=== PATIENT | female | born 1955 | race Caucasian/White ===

== ENCOUNTER 2019-10-31 11:32 | Outpatient (CLI) | payer BC, SELFPAY ==
[2019-10-31 11:53] LABS: Hematocrit 40.9 % (35.0-49.0)
[2019-10-31 12:21] LABS: Alanine Aminotransferase 26 U/L (14-59); Albumin Level 3.9 g/dL (3.4-5.0); Alkaline Phosphatase 85 U/L (46-116); Aspartate Amino Transferase 23 U/L (15-37); Bilirubin Direct 0.1 mg/dL (0-0.2); Bilirubin,Total 0.4 mg/dL (0.00-1.00); Estimated Glomerular Filt Rate > 60; Total Protein 7.2 g/dL (6.4-8.2)
== END 2019-10-31 11:33 | disposition home or self-care (01) ==
LOC: CHSLAB 11:36
PROVIDERS: PCP Family Medicine; Visit Provider Internal Medicine Rheumatology
DX: M15.9 Polyosteoarthritis, unspecified (principal); M79.7 Fibromyalgia
CPT/HCPCS: 36415; 80076; 82565; 85014; 85018

== ENCOUNTER 2019-11-09 14:14 | Outpatient (CLI) | payer BC, SELFPAY ==
--- NOTE | ~2019-11-09 | MM_ITS ---
EXAMINATION: MM screening connor BI w vineet HISTORY: Screening mammogram TECHNIQUE: Craniocaudal and mediolateral oblique 3-D tomosynthesis images were obtained and synthetic 2-D images were generated. CAD analysis was submitted and interpreted. COMPARISON: 09/07/2018, 03/09/2012 bilateral digital screening mammogram examinations BREAST PARENCHYMAL COMPOSITION: There are scattered areas of fibroglandular density. FINDINGS: Minimal benign calcification. Scattered small circumscribed benign-appearing densities are again noted. There is no evidence of suspicious mass, calcification, or architectural distortion to s uggest malignancy in either breast. There has been no suspicious interval change. IMPRESSION: 1. No mammographic evidence of malignancy. 2. Recommend routine screening mammography in one year. BI-RADS Category 2: Benign finding(s). Reviewed, dictated and finalized at location A.
== END 2019-11-09 14:15 | disposition home or self-care (01) ==
LOC: CHSIMG 14:16
PROVIDERS: PCP Family Medicine; Visit Provider Family Medicine
DX: Z12.31 Encounter for screening mammogram for malignant neoplasm of breast (principal)
CPT/HCPCS: 77063; 77067

== ENCOUNTER 2020-03-01 14:13 | Outpatient (CLI) | payer BC, SELFPAY | END 2020-03-01 14:14 | disposition home or self-care (01) | LOC: CHSLAB 14:17 | PROVIDERS: PCP Family Medicine | DX: E11.9 Type 2 diabetes mellitus without complications (principal) | CPT/HCPCS: 36415; 83036 ==

== ENCOUNTER 2020-05-30 16:59 | Outpatient (RCR) | payer BC, SELFPAY ==
--- NOTE | 2020-06-02 07:15 | PTOPEVAL ---
Thank you for referring Jaycee Espinosa to [facility].? The patient is scheduled to be seen for therapy? __3__x/week for 12 visits. Please review, sign, date and return this plan of care MARGE. I agree with and certify that the following plan of care is medically necessary. Referring Physician Date Admitting Provider: Attending Provider: Jeane Archuleta, INSOLE DOUBLER Referring Provider: *PT Outpatient Evaluation Start: 05/30/20 13:58 Freq: Status: Active Protocol: Document 05/30/20 17:03 ACR (Rec: 05/30/20 18:08 ACR [id number]) Therapy Assessment Status Assessment Status Assessment Status Evaluation Evaluation Information Problem Diagnosis Low back pain Onset 05/27/19 Subjective Information Patient states her low back Query Text:As Reported By Patient/ pain is a constant thing due Family to arthritis. She went to her rheumtoligist because her sciatic pain was increasing and got X-rays in february and he recommended surgery. She then went to her PCP and received an MRI and they referred her to PT. Patient states she received PT a couple years ago then received injections which helped the pain. Patient states she still does her exercises that she learned last time almost daily . The exercises are heel raises, hip abduction, hip extension, back extension, piriformis stretch. Patient states that she has difficulty with prolonged standing, difficulty getting up out of a chair, sleeping on her back. Patient states that the pain will wake her up at night. 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
== END 2020-06-27 14:13 | disposition home or self-care (01) ==
LOC: CHSPT 16:59
PROVIDERS: Visit Provider Nurse Practitioner Family
DX: M54.5 Low back pain (principal)
CPT/HCPCS: 97014; 97110; 97161; G0283

== ENCOUNTER 2021-03-02 12:30 | Outpatient (CLI) | payer BC, SELFPAY ==
[2021-03-02 12:42] LABS: Hematocrit 40.6 % (35.0-49.0); Hemoglobin 13.7 g/dL (12.0-15.0)
[2021-03-02 13:24] LABS: Alanine Aminotransferase 28 U/L (14-59); Albumin Level 3.8 g/dL (3.4-5.0); Alkaline Phosphatase 73 U/L (46-116); Aspartate Amino Transferase 20 U/L (15-37); Bilirubin Direct 0.1 mg/dL (0-0.2); Bilirubin,Total 0.4 mg/dL (0.00-1.00); Estimated Glomerular Filt Rate > 60; Total Protein 6.8 g/dL (6.4-8.2)
== END 2021-03-02 12:31 | disposition home or self-care (01) ==
LOC: CHSLAB 12:33
PROVIDERS: PCP Family Medicine; Visit Provider Internal Medicine Rheumatology
DX: M15.9 Polyosteoarthritis, unspecified (principal)
CPT/HCPCS: 36415; 80076; 82565; 85014; 85018

== ENCOUNTER 2021-03-13 13:16 | Outpatient (CLI) | payer BC, SELFPAY ==
--- NOTE | ~2021-03-13 | XR_ITS ---
EXAMINATION: XR knee RT min 4V DATE: 03/13/2021 13:52 INDICATION: Right knee osteoarthritis and pain. TECHNIQUE: 4 views of right knee were obtained. COMPARISON: None. FINDINGS: Bone alignment is normal. No fracture. There is moderate osteoarthritis of patellofemoral c ompartment and mild osteoarthritis of medial and lateral compartments. No knee joint effusion. IMPRESSION: 1. Moderate right knee osteoarthritis. Reviewed, dictated and finalized at location A.
--- NOTE | ~2021-03-13 | XR_ITS ---
EXAMINATION: XR knee LT min 4V DATE: 03/13/2021 13:52 INDICATION: Left knee osteoarthritis and pain. TECHNIQUE: 4 views of left knee were obtained. COMPARISON: None. FINDINGS: Bone alignment is normal. No fracture. There is mild tricompartmental osteoarthritis charac terized by marginal osteophytes. No joint space narrowing. No knee joint effusion. IMPRESSION: 1. Mild left knee osteoarthritis. Reviewed, dictated and finalized at location A.
== END 2021-03-13 13:17 | disposition home or self-care (01) ==
LOC: CHSIMG 13:18
PROVIDERS: PCP Family Medicine; Visit Provider Internal Medicine Rheumatology
DX: M17.11 Unilateral primary osteoarthritis, right knee (principal)
CPT/HCPCS: 73564

== ENCOUNTER 2021-05-11 12:18 | Emergency (ER) | payer MEDICARE, SELFPAY ==
--- NOTE | 2021-05-11 12:38 | ECG_ITS ---
Measurements Intervals Fox Rate: 45 P: 57 IN: 155 QRS: 40 QRSD: 100 T: 60 QT: 469 QTc: 407 Interpretive Statements SINUS BRADYCARDIA DELAYED PRECORDIAL R/S TRANSITION BASELINE ARTIFACT- I, II, III, AVR, AVL, AVF, V1 ABNORMAL ECG Electronically Signed On 05-11-2021 17:04:45 CONCAVER by Jacob Hutchison D.O.
[2021-05-11 12:41] VITALS: BP 141/51; PULSE 50; RESP 18; TEMP 36.9; O2SAT 98
--- NOTE | 2021-05-11 13:00 | ED.GENADULT ---
HPI - General Adult General Chief complaint: Dizziness Stated complaint: dizzy off/on since 7:30am Source: patient and family Mode of arrival: ambulatory History of Present Illness HPI narrative: Jaycee is a 66F with a PMH of -- that presented to the ED with dizziness. She woke up with it. It originally got better but then cam back when she turned her head. it is worse with rapidly turning her head and looking to the side. No CP, SOB, or lightheadedness. Her HR is low but she says her HR is always 50 and that is nothing new for her. Related Data Allergies Allergy/AdvReac Type Severity Reaction Status Date / Time No Known Allergies Allergy Verified 05/11/21 13:12 Review of Systems Constitutional: Constitutional: Reports no additional constitutional complaints Eyes: Eyes: Reports no additional eye complaints ENT: Reports system reviewed and no additional complaints, except as documented Cardiovascular: Cardiovascular: Reports no additional cardiovascular complaints Respiratory: Respiratory: Reports no additional respiratory complaints Gastrointestinal: Gastrointestinal: Reports nausea Genitourinary: Genitourinary: Reports no additional female genitourinary complaints Musculoskeletal: Musculoskeletal: Reports no additional musculoskeletal complaints Integumentary/Breasts: Skin/Breast: Reports system reviewed and no additional complaints, except as docu Neurologic: Reports as per HPI Psychiatric: Psychiatric: Reports no additional psychiatric complaints Endocrine: Endocrine: Reports no additional endocrine complaints Hematologic/Lymphatic: Hematologic/Lymphatic: Reports no additional hematologic/lymphatic complaints Allergic/Immunologic: Allergic/Immunologic: Reports no additional allergic/immunologic complaints [facility] Family History Family History Mother Family history of malignant neoplasm of skin Other Family history of type 2 diabetes mellitus Social History Social History Smoking status: Current every day smoker Exam Const: General: no acute distress and alert Orientation/consciousness: patient oriented x3 Limitations: No altered mental status HENMT: Head: normal to inspection Other: atraumatic Eyes: Conjunctivae: conjunctivae normal Pupils: Equal, round and reactive pupils present Neck: Neck: normal visual inspection Chest: Chest palpation & inspection: normal inspection of the chest Resp: Effort & Inspection: normal respiratory effort Auscultation: clear to auscultation bilaterally Cardio: Rate: regular rate Rhythm: regular rhythm Skin: General skin exam: normal color Neuro: General: patient oriented x3, moves all extremities, no meningeal signs, no focal motor deficits and CN's II-XI intact bilaterally Other: 3 beats of nystagmus to the left. Normal head impulse test. No skew deviation. Extrem: General: normal to inspection Psych: Mental Status: mental status grossly normal Course Course Emergency Course: Discussed diagnosis and sent script for meclizine. Gave instructions for the Chaya maneuver. Vital Signs Vital signs: Vital Signs Temperature 98.4 F 05/11/21 12:41 Pulse Rate 50 L 05/11/21 12:41 Respiratory Rate 18 05/11/21 12:41 Blood Pressure 141/51 H 05/11/21 12:41 Pulse Oximetry 98 05/11/21 12:41 Temperature 98.4 F 05/11/21 12:41 Pulse Rate 50 L 05/11/21 12:41 Respiratory Rate 18 05/11/21 12:41 Blood Pressure 141/51 H 05/11/21 12:41 Pulse Oximetry 98 05/11/21 12:41 Medical Decision Making Vital Signs Vital Signs: Vital Signs Temperature 98.4 F 05/11/21 12:41 Pulse Rate 50 L 05/11/21 12:41 Respiratory Rate 18 05/11/21 12:41 Blood Pressure 141/51 H 05/11/21 12:41 Pulse Oximetry 98 05/11/21 12:41 Temperature 98.4 F 05/11/21 12:41 Pulse Rate 50 L 05/11/21 12:41 Respiratory Rate 18 04/16
== END 2021-05-11 13:09 | disposition home or self-care (01) ==
PROVIDERS: Emergency Provider Family Medicine; PCP Family Medicine
DX: H81.10 Benign paroxysmal vertigo, unspecified ear (principal)
CPT/HCPCS: 93005; 99283

== ENCOUNTER 2021-10-29 14:40 | Outpatient (CLI) | payer MEDICARE, SELFPAY ==
[2021-10-29 14:55] LABS: Basophils Absolute Auto 0.05 K/mm3 (0.00-0.10); Basophils Percent Auto 0.6 % (0.0-1.0); Eosinophils Absolute Auto 0.05 K/mm3 (0.02-0.50); Eosinophils Percent Auto 0.6 % (1.0-6.0); Hematocrit 40.3 % (35.0-42.0); Hemoglobin 13.5 g/dL (11.7-13.8); Immature Granulocyte Absolute 0.02 K/mm3 (0.00-0.00); Immature Granulocyte Percent A 0.3 % (0.0-0.0); Lymphocytes Absolute Auto 2.85 K/mm3 (1.10-4.50); Lymphocytes Percent Auto 36.2 % (18.0-42.0); Mean Corpuscular HGB Conc 33.5 g/dL (32.0-36.0); Mean Corpuscular Hemoglobin 30.9 pg (27.0-31.0); Mean Corpuscular Volume 92.2 fL (78.0-102.0); Mean Platelet Volume 10.6 fl (9.2-11.8); Monocytes Absolute Auto 0.44 K/mm3 (0.10-0.90); Monocytes Percent Auto 5.6 % (2.0-11.0); Neutrophils Absolute Auto 4.5 K/mm3 (1.7-7.2); Neutrophils Percent Auto 56.7 % (50.0-70.0); Platelet Count Result 205 K/mm3 (150-420); Red Blood Count 4.37 M/mm3 (4.20-5.40); Red Cell Distribution Width 12.8 % (11.6-14.4); White Blood Count 7.9 K/mm3 (4.8-10.8)
[2021-10-29 14:59] LABS: Add Urine Microscopic? YES; Appearance Urine Clear (Clear); Bilirubin Urine Negative (Negative); Blood Urine Negative (Negative); Color Urine Yellow (Yellow); Glucose Urine UA Negative (Negative); Ketones Urine Trace (Negative); Leukocyte Esterase Ur Negative (Negative); Nitrate Urine Negative (Negative); Protein Urine Negative (Negative); Urobilinogen Urine 0.2 mg/dL (0.2-1.0); pH Urine 5.5 (5.0-8.0)
[2021-10-29 15:11] LABS: Alanine Aminotransferase 9 U/L (14-59); Albumin Level 3.6 g/dL (3.4-5.0); Alkaline Phosphatase 69 U/L (46-116); Anion Gap 6 mmol/L (8-16); Aspartate Amino Transferase 18 U/L (15-37); Bilirubin,Total 0.3 mg/dL (0.00-1.00); Blood Urea Nitrogen 25 mg/dL (7-18); Calcium 8.9 mg/dL (8.5-10.1); Carbon Dioxide 29 mmol/L (21-32); Chloride 105 mmol/L (98-108); Estimated Glomerular Filt Rate > 60; Glucose 105 mg/dL (70-99); Osmolality Calculated 294 mOsm/kg (285-295); Sodium 140 mmol/L (136-145); Total Protein 6.8 g/dL (6.4-8.2)
[2021-10-29 15:16] LABS: Bacteria Urine 1+ /hpf; RBC Urine None seen /hpf (0-2); Squamous Epithelial Cell Urine Few /hpf (Few); WBC Urine None seen /hpf (0-3)
== END 2021-10-29 14:41 | disposition home or self-care (01) ==
LOC: CHSLAB 14:43
PROVIDERS: PCP Family Medicine; Visit Provider Internal Medicine Rheumatology
DX: M15.9 Polyosteoarthritis, unspecified (principal); M79.7 Fibromyalgia
CPT/HCPCS: 36415; 80053; 81001; 85025

== ENCOUNTER 2022-01-25 12:54 | Outpatient (CLI) | payer MEDICARE, SELFPAY ==
--- NOTE | ~2022-01-25 | MM_ITS ---
EXAMINATION: MM screening connor BI w vineet HISTORY: Screening mammogram TECHNIQUE: Craniocaudal and mediolateral oblique 3-D tomosynthesis images were obtained and synthetic 2-D images were generated. CAD analysis was submitted and interpreted. COMPARISON: 11/09/2019, 09/07/2018 bilateral screening mammogram examinations BREAST PARENCHYMAL COMPOSITION: There are scattered areas of fibroglandular density. FINDINGS: Occasional benign calcifications. Again noted are scattered low-density small circumscribed opacities. There is no evidence of suspicious mass, calcification, or architectural distortion to ramos ggest malignancy in either breast. There has been no suspicious interval change. IMPRESSION: 1. No mammographic evidence of malignancy. 2. Recommend routine screening mammography in one year. BI-RADS Category 2: Benign finding(s). Reviewed, dictated and finalized at location A.
== END 2022-01-25 12:55 | disposition home or self-care (01) ==
LOC: CHSIMG 12:56
PROVIDERS: PCP Family Medicine; Visit Provider Family Medicine
DX: Z12.31 Encounter for screening mammogram for malignant neoplasm of breast (principal)
CPT/HCPCS: 77063; 77067

== ENCOUNTER 2023-07-26 10:08 | Outpatient (CLI) | payer MEDICARE, SELFPAY ==
[2023-07-26 10:48] LABS: Basophils Absolute Auto 0.07 K/mm3 (0.00-0.10); Basophils Percent Auto 0.8 % (0.0-1.0); Eosinophils Percent Auto 1.1 % (1.0-6.0); Hematocrit 44.3 % (35.0-42.0); Hemoglobin 14.7 g/dL (11.7-13.8); Immature Granulocyte Absolute 0.03 K/mm3 (0.00-0.00); Immature Granulocyte Percent A 0.3 % (0.0-0.0); Lymphocytes Absolute Auto 3.02 K/mm3 (1.10-4.50); Lymphocytes Percent Auto 33.4 % (18.0-42.0); Mean Corpuscular HGB Conc 33.2 g/dL (32-36); Mean Corpuscular Hemoglobin 30.3 pg (27.0-31.0); Mean Corpuscular Volume 91.3 fL (78.0-102.0); Monocytes Absolute Auto 0.54 K/mm3 (0.10-0.90); Neutrophils Absolute Auto 5.27 K/mm3 (1.70-7.20); Neutrophils Percent Auto 58.4 % (50.0-70.0); Platelet Count Result 209 K/mm3 (150-420); Red Blood Count 4.85 M/mm3 (4.20-5.40); Red Cell Distribution Width 12.4 % (11.6-14.4)
[2023-07-26 12:01] LABS: Anion Gap 10 mmol/L (8-16); Carbon Dioxide 31 mmol/L (21-32); Chloride 105 mmol/L (98-108); Potassium 4.1 mmol/L (3.5-5.1); Sodium 146 mmol/L (136-145)
[2023-07-26 12:02] LABS: Alanine Aminotransferase 23 U/L (14-59); Albumin Level 3.9 g/dL (3.4-5.0); Blood Urea Nitrogen 17 mg/dL (7-18); Calcium 8.9 mg/dL (8.5-10.1); Estimated Glomerular Filt Rate > 60; Glucose 128 mg/dL (70-99); Osmolality Calculated 305 mOsm/kg (285-295)
[2023-07-26 12:14] LABS: Alkaline Phosphatase 79 U/L (46-116); Aspartate Amino Transferase 23 U/L (15-37); Bilirubin,Total 0.3 mg/dL (0.00-1.00); Total Protein 6.9 g/dL (6.4-8.2)
== END 2023-07-26 10:09 | disposition home or self-care (01) ==
PROVIDERS: PCP Family Medicine; Visit Provider Internal Medicine Rheumatology
DX: Z79.899 Other long term (current) drug therapy (principal)
CPT/HCPCS: 36415; 80053; 85025

== ENCOUNTER 2024-06-27 13:48 | Outpatient (CLI) | payer MEDICARE, SELFPAY ==
--- NOTE | ~2024-06-27 | MM_ITS ---
EXAMINATION: MM screening [facility] BI w [facility] HISTORY: Screening TECHNIQUE: Craniocaudal and mediolateral oblique 3-D tomosynthesis images were obtained and synthetic 2-D images were generated. CAD analysis was submitted and interpreted. COMPARISON: Comparison to multiple prior studies sequentially, with oldest reviewed study dated 01/25. BREAST PARENCHYMAL COMPOSITION: Not dense: There are scattered areas of fibroglandular density. FINDINGS: There are stable benign-appearing bilateral breast masses. There is no evidence of suspicio us mass, calcification, or architectural distortion to suggest malignancy in either breast. There has been no suspicious interval change. IMPRESSION: 1. No mammographic evidence of malignancy. 2. Recommend routine screening mammography in one year. BI-RADS Category 2: Benign finding(s). Reviewed, dictated and finalized at location B. RAFT REFUELER
--- OUTSIDE RECORDS SUMMARY | 2024-06-27 13:55 | XMS_ITS | Clinical Summary ---
Author Organization [facility] [employer] Address [address] [place] [address] Care Team Providers Care Electrical Drafter Name Role Phone Bart Fortune MD Primary Care Provider [phone] Source Comments [employer],non-owned Affiliates and Associated Physician Practices is amultiple site organization consisting of ambulatory clinics and hospital sitesin [place], [place], [place] and [place]. This disclosure is being madepursuant to the Care Everywhere program and may not contain all information available regarding this patient. Last updated 18.[employer] Allergies No known active allergies Medications * Be aware that medications may not be up to date on this document. Alwaysverify current medications with the patient. Medication Sig Dispensed Refills Start Date End Date Status METOPROLOL SUCCINATE ER PO Active FENOFIBRATE MICRONIZED PO Active LOSARTAN POTASSIUM PO Act cesar Furosemide (LASIX PO) Act cesar Social History Tobacco Use Types Packs/Day Years Used Date Smoking Tobacco: Every Day Sex and Gender Information Value Date Recorded Sex Assigned at Not on file Gender Identity Not on file Sexual Orientation Not on file Last Filed Vital Signs Vital Sign Reading Time Taken Comments Blood Pressure 120/56 08/18/2016 2:45 PM CDT Pulse 66 08/18/2016 2:45 PM CDT Temperature 36.5 C (97.7 F) 08/18/2016 2:45 PM CDT Respiratory Rate 16 08/18/2016 2:45 PM CDT Oxygen Saturation 97% 08/18/2016 2:45 PM CDT Inhaled Oxygen Concentration - - Weight 117.9 kg (260 lb) 08/18/2016 2:45 PM CDT Height 160 cm (5' 3 ) 08/18/2016 2:45 PM CDT Body Mass Index 46.06 08/18/2016 2:45 PM CDT Plan of Treatment Health Maintenance Due Date Last Done Comments BONE DENSITY TESTING 1956 COLOGUARD (AGES 45-75) - COL ON CA SCREENING 1956 COLON MONITORING 1956 COLONOSCOPY - COLON CA SCREENING 1956 CT COLONOGRAPHY - COLON CA SCREENING 1956 Colorectal Cancer Screening 1956 FIT - COLON CA SCREENING 1956 FLEX SIG - COLON CA SCREENING 1956 LIPID TESTING 1956 MAMMOGRAM 1956 HEPATITIS C SCREENING 04/04/1974 DTAP/TDAP/TD VACCINES (1 - Tdap) 1975 PNEUMOCOCCAL VACCINE 50+ (1 of 2 - PCV) 1975 ZOSTER VACCINE (1 of 2) 2006 Respiratory Syncytial Virus (RSV) Vaccine Pt: or over 60 yrs (1 - Risk 60-74 years 1-dose series) 2016 COVID-19 VACCINE (1 - 2023-2 5 season) 2024 INFLUENZA VACCINE (#1) 2024 DEPRESSION SCREENING 05/16/2024 HEPATITIS B VACCINE Aged Out No longe r eligible based on patient's age to complete this topic HIB VACCINE Aged Out No longer eligi ble based on patient's age to complete this topic HPV VACCINE Aged Out No longer eligi ble based on patient's age to complete this topic MENINGOCOCCAL (Group B) VACCINE Aged Out No longer eligible based on patient's age to complete this topic MENINGOCOCCAL VACCINE Aged Out No ricardo henny eligible based on patient's age to complete this topic Care Teams Electrical Drafter Relationship Specialty Start Date End Date Bart Fortune MD [address] [place] [address] PCP - General Surgery 08/18/16
--- OUTSIDE RECORDS SUMMARY | 2024-06-27 13:55 | XMS_ITS | Referral Summary ---
Author Organization [facility] [employer] Address [address] [place] [address] Care Team Providers Care Slitting Machine Operator Helper Name Role Phone Bart Fortune MD Primary Care Provider [phone] Source Comments [facility],non-owned Affiliates and Associated Physician Practices is amultiple site organization consisting of ambulatory clinics and hospital sitesin [place], [place], [place] and [place]. This disclosure is being madepursuant to the Care Everywhere program and may not contain all information available regarding this patient. Last updated 18.[employer] [facility] Allergies No known active allergies Medications * [...] 08/18/2016 2:45 PM CDT Plan of Treatment Not on file Care Teams Slitting Machine Operator Helper Relationship Specialty Start Date End Date Bart Fortune MD [address] [place] [address] PCP - General Surgery 08/18/16
--- OUTSIDE RECORDS SUMMARY | 2024-06-27 13:55 | XMS_ITS | Data Portability ---
Author Organization [facility], [address] [place] [address] ([place]) Address [address] [place] [id number] Care Team Providers Care Operations Research Scientist Name Role Phone JOSEFINA GUTIERREZ Primary Care Provider CLINT MELLO Primary Care Provider [phone] HECTOR CARDOZA Referring Provider Assessment Encounter Date Assessment Date Assessment LastModified by Organization Details LastModified Time 10/26/2023 10/26/2023 IMPRESSION: 1. Bilateral elbow lateral epicondylitis. 2. Right thumb osteoarthritis of the carpometacarpal joint. 3. Right ring finger trigger finger. 4. Fibromyalgia syndrome. 5. 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 nv PLAN: 1. Meloxicam 7.5 mg orally daily with food. 2. Bilateral elbow lateral epicondyle cortisone injections today. The indications, risks, benefits and potential side effects of the procedure are discussed with the patient today in detail and informed consent obtained to proceed. With the patient in the seated position, both elbows are propped on a stand and properly draped. The landmarks are identified and the lateral epicondylar injection sites are identified and marked. Subsequently, the sites are cleaned with Betadine and while maintaining sterile technique, ethyl chloride spray is used to anesthetize the skin over each elbow while in each instance, a 25 gauge needle attached to a syringe containing 40 mg of Depo Medrol and 0.5 cc of 1% lidocaine is introduced into the lateral epicondyle site and the contents are injected. Subsequently, the needle is withdrawn and the areas cleaned and covered with a sterile bandage. There is no blood loss or complications. The patient tolerated the procedure well and is discharged home in stable condition. I performed this procedure today myself with the assistance of my nursing staff. 3. Referral to [facility] regarding her right thumb osteoarthritis of the carpometacarpal joint and right ring finger trigger finger. 4. Lyrica 200 mg p.o. t.i.d. 5. Followup visit in 4 months. I personally spent a total of 30 minutes on the patient on this date of service including both hgwu-gg-qtaz and nxu-amlj-bp-face time excluding any separately reportable services. nv Not available 10/28/2023 15:22:28 11/08/2023 11/08/2023 Thank you, Dr. Baum, for the opportunity to see your patient in consultation. S UBJECTIVE: Jaycee is a 68-year-old, right-hand dominant, female who is here for evaluation of right ring finger pain with triggering and pain in the right thumb. 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 she lives at home with her family in [place], [place]. She uses tobacco. She has a significant medical history of type 2 diabetes with a recent A1C of 6.7. She has been complaining of some pain with triggering in the right ring finger over the past few months. She also complains of some pain in the right thumb, constant aching, sharp, 3/10 on pain intensity scale. Pain is aggravated with daily activities. The patient presents to our clinic by herself today. REVIEW OF SYSTEMS: CONST: No fevers or chills. EYES: No vision changes. ENT: No difficulty in swallowing. RESP: No shortness of breath. CV: No heart racing. GI: No nausea, vomiting. MSK: No swelling or edema in extremities. SKIN: No rashes or other skin lesions. PSYCH: No new changes in mood or affect. NEURO: No new pain or weakness. Reviewed past medical history, surgical history, family history, social history. No changes except as noted. PHYSICAL EXAMINATION: CONST: Alert and oriented x3, in no apparent distress. EYES: No icterus. Symmetrical. ENT: Neck Supple. No cervical lymphadenopathy. JVP normal. RESP: Bilateral breath sounds appreciated. Clear to auscultation bilaterally. CV: Regular heart rhythm. No rub, or gallop. Radial pulses normal. No significant pretibial or ankle edema. GI: Abdomen soft, nontender, no lumps or masses palpable. No guarding or rigidity. MSK: Examination of the right upper extremity demonstrated she has significant tenderness to palpation over the right ring finger A1 andrew with triggering. She also has significant tenderness to palpation in the right thumb CMC joint with a positive grind test. She has goo sensation to light touch. Her right hand is well perfused with good capillary refill. SKIN: No acute rash or lesions. PSYCH: Mood and affect appropriate to the situation. NEURO: No motor deficits grossly. No facial asymmetry. Reviewed pertinent diagnostic tests, lab work, and imaging. These were reviewed with the patient. DIAGNOSTIC DATA: x-rays of the right hand were obtained today and reviewed by myself independently suggesting right thumb CMC joint arthritis. ASSESSMENT AND PLAN: Clinical and radiographic findings were discussed with the patient today. We discussed the nature of trigger finger and thumb CMC joint arthritis. Activity modification, range of motion and stretching were discussed. Informed consent was discussed and obtained. An explanation of the procedure was provided. The risks and benefits of the procedure, the risks and benefits of alternative procedures as well as the possible consequences of not undergoing the procedure were discussed. Patient verbalizes understanding and gives consent to proceed. The right ring finger area was sterilely prepped. A single injection was performed into the right ring finger A1 andrew. The injected material was a mixture of 0.5 ml of 0.5% plain bupivacaine mixed with 0.5 ml of 6mg/ml of betamethasone . The patient was given the appropriate instructions for aftercare following the injection. Patient verbalized understanding of aftercare instructions. Patient tolerated the procedure well. She will return to our clinic in three weeks for reevaluation. She might benefit from a steroid injection to the right thumb CMC joint if her symptoms continue to progress in the future. The patient will call or return if they have any questions or concerns. [facility] [email or web address] Not available 11/09/2023 11:37:58 12/02/2023 12/02/2023 SUBJECTIVE: Jaycee is a 68-year-old right-hand dominant female who is here for evaluation of right ring finger pain with triggering and pain in the right thumb. 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 she lives at home with her family in [place], [place]. She uses tobacco. She has a significant medical history of type 2 diabetes with a recent A1C of 6.7. She has been complaining of some pain with triggering in the right ring finger over the past few months. She was seen in the clinic and had a steroid injection, which did provide significant pain relief. She reported the pain in the right thumb did not get better. Constant, aching, sharp, 4/10 on pain intensity scale. She presents to our clinic by herself today. PHYSICAL EXAMINATION: Examination of the right upper extremity demonstrates that she has significant tenderness to palpation over the right thumb CMC joint area with positive grind test. She has limited range of motion of the right thumb due to pain. Her right hand was well perfused with good capillary refill. DIAGNOSTIC DATA: X-rays of the right hand were obtained today and reviewed by myself independently suggesting right thumb CMC joint arthritis. ASSESSMENT AND PLAN: Clinical and radiographic findings were discussed with the patient today. We discussed the nature of thumb CMC joint arthritis. Her symptoms have been progressing. Activity modification, range of motion, stretching were discussed. Informed consent was discussed and obtained. An explanation of the procedure was provided. The risks and benefits of the procedure, the risks and benefits of alternative procedures, as well as the possible consequences of not undergoing the procedure were discussed. The patient verbalizes understanding and gives consent to proceed. The right thumb area was sterilely prepped. A single injection was performed into the right thumb CMC joint. The injected material was a mixture of 0.5 mL of 0.5% plain bupivacaine mixed with 0.5 mL of 6 mg/mL of betamethasone. The patient was given the appropriate instructions for aftercare following the injection. The patient verbalized understanding of aftercare instructions. The patient tolerated the procedure well. She will follow up with us on an as-needed basis. She will call or return if she has any questions or concerns. [place]inton [place] Not available 12/03/2023 12:39:02 02/09/2024 02/09/2024 IMPRESSION: 1. FMS. 2. Osteoarthritis. 3. 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 PLAN: 1. Continue current pregabalin and meloxicam therapy. 2. NSAID labs in 4 months as ordered. 3. Encouraged patient to keep active with 1 hour or more of weightbearing activity daily. 4. Followup visit in 6 months. alyssa Not available 02/09/2024 20:58:46 Plan of Treatment Reminders Order Date Submit Date Provider Last Modified By Organization Details Last Modified Time Details Appointments Establish ed Patient 15.EST 2024 10:00A M Dr. Hector Cardoza Not available Not available Not available Lab None recorded. Referral None recorded. Procedures None recorded. Surgeries None recorded. Imaging None recorded. Medication Orders Depo-Medr ol 80 mg/mL suspensio n for injection 2023 024 [id number], [address], [place], [phone], 10/26/2023 14:12:35 Depo-Medr ol 80 mg/mL suspensio n for injection 2023 024 [id number], [address], [place], [phone], 10/26/2023 14:12:35 Patient TargetsNo targets recorded. Patient InstructionsNo instructions recorded. Reason for Referral None Reported. Results Created Date Observation Date Name Description Value Unit Range Abnormal Flag Note LastModifiedBy Organization Detail LastModifiedTime 12/02/19 24 12/02/2023 XR, finge r(s) [address] [address] Teleph mik [phone] Name: Jaycee Espinosa [id number] am Date: 2023 Age: 68Phys ician: MD Marialuisa, Shauna escobar : 1954Ex aminat ion: XR FINGER S RIGHT EXAMIN ATION: Right thumb, 3 views HISTOR Y: Pain and swelli ng of right thumb for about 3 months . No known injury . No previo us images . FINDIN GS: There is osteoa rthrit is at the IP joint, MCP joint and CMC joint of the thumb. No fractu re identi fied. No destru ctive osseou s lesion identi fied. No opaque foreig n body identi fied. IMPRES URSULA: Osteoa rthrit is. Electr onical ly signed in [place] cribe by: LOGAN MCNEILL MD on:11/13 3:30 PM cc: Page PAGE 1 of YEMI ES 1 [email or web address] [facility] [address] [place] [address], [id number], 12/03/2023 18:12:21 Result Notes None recorded. Problems Name Problem SNOMED Code Status Onset Date Resolution Date Notes Provider Name and Address Organization Details Recorded Time Fibromyalgi a 309215524 [facility] 12:14[facility]42 Osteoarthri tis 966775740 Active 2023 Jo Elias [facility] 4 12:14:48 Degeneratio n of lumbar interverteb ral disc 08147013 Active 2023 Jo Elias [facility] 4 12:15:00 Lateral epicondylit is of bilateral humerus 4293810981243 9108 Active 2023 Hector Cardoza MD [address] [facility], [place], [address], [facility] 4 12:43:37 Osteoarthro sis of the carpometaca rpal joint of the thumb 01089613 Active 2023 Hector Cardoza MD [address] [facility], [facility] [place], [address], [facility] 4 12:43:59 Acquired trigger finger of right ring finger 6319357869653 08 Active 2023 Hector Cardoza MD [address] [facility], [facility] [place], [address], [facility] 4 12:44:10 Osteoarthri tis of first carpometaca rpal joint of right hand 8084481384352 01 Active 2023 Augustina Elam MD [address] , [facility] [place], [address], [facility] 4 21:02:19 Nicotine dependence 79059403 Active 2023 Marie Mcelroy [facility] 4 19:12:50 Pain in right hand 7521322378574 09 Active 2023 Mike Alfonso [facility] 4 10:04:29 Problem Notes None recorded. Procedures Surgical History Date Name Laterality Status Provider Name and Address Organization Details Recorded Time Appendectomy completed Not Available Health Note 10/24/2023 10:30:51 Colonoscopy with biopsy completed Not Available Health Note 10/24/2023 10:30:51 Removal of gallbladder completed Not Available Health Note 10/24/2023 10:30:51 Partial hysterectomy completed Not Available Health Note 10/24/2023 10:30:51 Removal of tonsils completed Not Available Health Note 10/24/2023 10:30:51 Imaging Results Imaging Date Name Status LastModified by Organiz ation Details LastModified Time 12/02/2023 XR, finger(s) completed [email or web address] [facility] Only - [facility] [address] [place] [address], [id number], 12/03/2023 18:12:21 Procedure Notes None recorded. Medical Equipment None Reported. Allergies No known drug allergies Medications Name Sig Start Date Stop Date Status Note LastModified by Organization Details LastModified Time furosemide 40 mg tablet TAKE 1 TABLET BY MOUTH DAILY active Not Available Not Available No t Available meloxicam 15 mg tablet TAKE 1 TABLET BY MOUTH EVERY OTHER DAY WITH FOOD 10/25 completed Not Available Not Available Not Available Depo-Medrol 80 mg/mL suspension for injection Take 40 mg by injection route. 2023 active Not Available Not Available Not Avai lable meloxicam 7.5 mg tablet Take 1 tablet every day by oral route with meal(s) for 90 days. active Not Available Not Available No t Available lorazepam 0.5 mg tablet TAKE 1 TABLET BY MOUTH AT BEDTIME NEEDED active Not Available Not Available No t Available buspirone 30 mg tablet Take 1 tablet twice a day by oral route. active Not Available Not Available No t Available buspirone 7.5 mg tablet TAKE 1 TABLET BY MOUTH TWICE DAILY 10/25 completed Not Available Not Available Not Available metformin ER 500 mg tablet,exte nded release 24 hr TAKE 1 TABLET BY MOUTH EVERY MORNING active Not Available Not Available No t Available Microlet Lancet USE 1 LANCET TWICE DAILY FOR TESTING BLOOD SUGAR active Not Available Not Available No t Available buspirone 15 mg tablet TAKE 1 TABLET BY MOUTH TWICE DAILY 02/08 completed Not Available Not Available Not Available rosuvastati n 20 mg tablet TAKE 1 TABLET BY MOUTH EVERY DAY active Not Available Not Available No t Available pregabalin 150 mg capsule TAKE 2 CAPSULES BY MOUTH TWICE DAILY 10/25 completed Not Available Not Available Not Available pregabalin 200 mg capsule Take 1 capsule 3 times a day by oral route. 2023 active Not Available Not Available Not Avai lable Contour Next Test Strips USE 1 STRIP DAILY FOR TESTING BLOOD SUGAR active Not Available Not Available No t Available Vitals Date Recorded Body height Body mass index (BMI) Body weight Heart rate Oxygen saturation Oxygen saturation in Arterial blood by Pulse oximetry Pain severity - 0-10 verbal numeric rating [Score] - Reported Systolic blood pressure Diastolic blood pressure Provider Name and Address Organization Details Last Updated DateTime 4 157.48 cm 36.4 kg/m2 90789.8 8 g 46 /min 98 % 98 % 5 130 mm[Hg] 82 mm[Hg] Jo Elias [facility] 4 12:13:50 Date Recorded Body height Pain severity - 0-10 verbal numeric rating [Score] - Reported Provider Name and Address Organization Details Last Updated DateTime 11/08/2023 157.48 cm 3 Brandy Goldstein [facility] 11/08/2023 10:07:30 Date Recorded Body height Pain severity - 0-10 verbal numeric rating [Score] - Reported Provider Name and Address Organization Details Last Updated DateTime 12/02/2023 157.48 cm 4 Brandy Goldstein [facility] 12/02/2023 16:14:38 Date Recorded Body height Body mass index (BMI) Body weight Heart rate Oxygen saturation Oxygen saturation in Arterial blood by Pulse oximetry Pain severity - 0-10 verbal numeric rating [Score] - Reported Systolic blood pressure Diastolic blood pressure Provider Name and Address Organization Details Last Updated DateTime 4 157.48 cm 37.8 kg/m2 97103.4 7 g 48 /min 96 % 96 % 2 124 mm[Hg] 62 mm[Hg] Leatha Mack [facility] 14:28:18 Social History Question Answer Notes LastModified by Organizat ion Details LastModified Time Tobacco Smoking Status Current Every Day Smoker Leatha Mack [facility], [facility] 02/09/2024 14:29:24 Do You Have An Advance Directive? No [email or web address] Information not available 11/25/2023 What Is Your Level Of Alcohol Consumption? None [email or web address] Information not available 11/25/2023 What Is Your Level Of Caffeine Consumption? Heavy [email or web address] Information not available 11/25/2023 Are You Currently Employed? 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 3-4 Times Per Week [email or web address] Information not available 11/25/2023 E-cigarettes Or Vaporization Device? Uses Non-nicotine Containing Device [email or web address] Information not available 11/01/2023 How Many Packs Per Day (PPD)? 1 Pack Per Day [email or web address] Information not available 10/24/2023 How Long Have You Smoked? 50 [email or web address] Information not available 11/25/2023 Do You Have A Medical Power Of Water Proofer? No [email or web address] Information not available 11/25/2023 What Was The Date Of Your Most Recent Tobacco Screening? 12/02/2023 [email or web address] Information not available 11/25/2023 What Is Your Relationship Status? Domestic Partner [email or web address] Information not available 11/25/2023 Do You Use Any Illicit Or Recreational Drugs? No [email or web address] Information not available 11/25/2023 Sex: Unknown Functional Status Question Answer Note LastModified by Organization D etails LastModified Time What is your exercise level? Moderate [email or web address] Information not available 11/25/2023 Mental Status None recorded. Family History Relationship Description Onset Age of this Age Resolved Age Notes LastModified by Organization Details LastModified Time Paternal Grandmother Arthritis [email or web address] Not available 10/14 10:30:49 Paternal Grandmother Diabetes mellitus [email or web address] Not available 2023 10:30:49 Paternal Grandmother Heart disease [email or web address] Not available 2023 10:30:49 Paternal Grandmother Hypertensive disorder [email or web address] Not available 2023 10:30:49 Paternal Grandmother Hypercholest erolemia [email or web address] Not available 2023 10:30:49 Mother Family history of malignant neoplasm [email or web address] Not available 2023 10:30:49 Mother Osteoporosis [email or web address] Not availa ble 10/24/2023 10:30:49 Mother Disorder of thyroid gland [email or web address] Not available 2023 10:30:49 Father Family history of malignant neoplasm [email or web address] Not available 2023 10:30:49 Father Heart disease [email or web address] Not available 2023 10:30:49 Father Hypercholest erolemia [email or web address] Not available 2023 10:30:49 Father Hypertensive disorder [email or web address] Not available 2023 10:25:46 Sister Family history of malignant neoplasm [email or web address] Not available 2023 10:30:49 Sister Diabetes mellitus [email or web address] Not available 2023 10:30:49 Sister Osteoporosis [email or web address] Not availa ble 10/24/2023 10:30:49 Sister Disorder of thyroid gland [email or web address] Not available 2023 10:30:49 Sister Heart disease [email or web address] Not available 2023 10:25:46 Paternal Grandfather Heart disease [email or web address] Not available 2023 10:30:49 Paternal Grandfather Hypertensive disorder [email or web address] Not available 2023 10:30:49 Paternal Grandfather Hypercholest erolemia [email or web address] Not available 2023 10:25:46 Maternal Grandmother Diabetes mellitus [email or web address] Not available 2023 10:25:46 Medical History Condition Response Anxiety Disorder Y Diabetes Y Bleeding Disorder N Attention-deficit Hyperactivity Disorder N High Blood Pressure N Arthritis Y Hyperlipidemia N Cancer N Thyroid Problems Y Stroke N COPD N Depression N Asthma N Seizures N Anemia N Heart Disease N Fibromyalgia Y Osteoporosis N Kidney Disease N Gynecological HistoryNo gynecological history recorded. Obstetrics History GPAL:G 0 P 0 0 0 0 Immunizations Vaccine Type Date Status Note Provider Nam e and Address Organization Details Recorded Time Influenza, MDCK, quadrivalent, PF 2 completed Jo Curt [facility] 10/26/2023 12:14:04 zoster recombinant 1 completed Jo Curt [facility] 10/26/2023 12:14:04 zoster recombinant 0 completed Jo Curt [facility] 10/26/2023 12:14:04 Influenza, adjuvanted, quadrivalent, PF 3 completed Jo [facility] 10/26/2023 12:14:04 COVID-19, mRNA, LNP-S, PF, 30 mcg/0.3 mL dose 1 completed Jo [facility] 10/26/2023 12:14:04 COVID-19, mRNA, LNP-S, PF, 30 mcg/0.3 mL dose 1 completed Jo [facility] 10/26/2023 12:14:04 COVID-19, mRNA, LNP-S, PF, 30 mcg/0.3 mL dose 1 completed Jo [facility] 10/26/2023 12:14:04 COVID-19, mRNA, LNP-S, PF, 30 mcg/0.3 mL dose, atul-sucrose 2 completed Joisabel Elias [facility] 10/26/2023 12:14:04 COVID-19, mRNA, LNP-S, bivalent, PF, 30 mcg/0.3 mL dose 2 completed Jo [facility] 10/26/2023 12:14:04 COVID-19, mRNA, LNP-S, PF, atul-sucrose, 30 mcg/0.3 mL 3 completed Jo Elias [facility] 10/26/2023 12:14:04 [facility] 12:14:04 Influenza, split virus, trivalent, preservative 1 [facility] 10/26/2023 12:14:04 Influenza, split virus, quadrivalent, PF 0 [facility] 10/26/2023 12:14:04 Influenza, split virus, quadrivalent, PF 8 completed Jo Elias [facility] 10/26/2023 12:14:05 Past Encounters Encounter ID Performer Location Encounter Start Date Encounter Closed Date Diagnosis/Indication Diagnosis SNOMED-CT Code Diagnosis ICD10 Code Diagnosis Note [id number] Hector Cardoza MD [address] [facility] ([place]) [address] [place] [address], [place] [address] 10/26/2023 11:25:41 10/26/2023 18:17:31 Lateral epicondylitis of bilateral humerus 9147881364 2411385 M77.11 M77.12 Osteoarthr osis of the carpometacarpal joint of the thumb 96904028 M18.9 Acquired t [facility] finger of right ring finger 8523579772 04452 M65.341 Fibromyalgia 261158700 M 79.7 [id number] Augustina Elam MD [address] [facility] ([place]) [address] [place] [address], [place] [address] 11/08/2023 09:42:01 11/08/2023 10:48:42 Acquired trigger finger of right ring finger 5955202750 32097 M65.341 Osteoarthr itis of first carpometacarpal joint of right hand 5607800755 43796 M18.11 Nicotine dependence 5629 4008 F17.946 [id number] Augustina Elam MD [address] [facility] ([place]) [address] [place] [address], t Floor [facility] [place] [address] 12/02/2023 15:30:10 12/02/2023 18:34:43 Osteoarthritis of first carpometacarpal joint of right hand 1895138442 10615 M18.11 Acquired t [facility] finger of right ring finger 5778587099 36393 M65.341 Nicotine dependence 5629 4008 F17.365 [id number] Hector Cardoza MD [facility] [place] [address] [place] [address] 02/09/2024 14:19:02 02/11/2024 06:03:20 Fibromyalgia 658679145 M79.7 Osteoarthritis 718446265 M15.0 Additional diagnosis detail: Primary generalize d (osteo)art hritis Mechanical low back pain 213205790 M54.59 snf current use of non-steroidal anti-inflammatory drug 8345024574 82769 Z79.1 Additional diagnosis detail: snf (current) use of non-steroi ivette anti-infla mmatories (nsaid) Health Concerns Section Related Observation LastModified by Organization Detai ls LastModified Time None Recorded Concern Status LastModified by Organization Details LastModified Time None Recorded Advance Directives Directive N: Payers Encounter Date Sequence Insurance Name Policy Number Policy Correia Covered Member ID Correia Member ID Guarantor Name 10/26/2023 1 [place] Jaycee Espinosa [id number] Jaycee Espinosa 10/26/2023 2 [employer] (MEDICARE SUPPLEMENT) PLAN G Jaycee Espinosa [id number] Jaycee Espinosa 11/08/2023 1 [place] Jaycee Espinosa [id number] Jaycee Espinosa 11/08/2023 2 [employer] (MEDICARE SUPPLEMENT) PLAN G Jaycee Espinosa [id number] Jaycee Espinosa 12/02/2023 1 [place] Jaycee Espinosa [id number] Jaycee Espinosa 12/02/2023 2 [employer] HE[employer] OPTIONS (MEDICARE SUPPLEMENT) PLAN G Jaycee Espinosa [id number] Jaycee Espinosa 02/09/2024 1 [place] Jaycee Espinosa [id number] Jaycee Espinosa 02/09/2024 2 [employer] HE[employer] OPTIONS (MEDICARE SUPPLEMENT) PLAN G Jaycee Espinosa [id number] Jaycee Espinosa Notes Date Note Type Note Provider Name and Address Organization Details Recorded Time 06/12/202 4 text/html The patient is a 68-year-old female with fibromyalgia syndrome, osteoarthritis and degenerative lumbar spine disease, who is here today for a followup visit. The patient reports today pain ranging up to a 5/10 on a scale, mainly affecting her elbows at the lateral epicondyles with pain on any attempt at tight gripping, pulling, pushing or lifting activities with the arms. Her right thumb has been swelling as well. She is encountering right ring finger trigger finger issues with locking on a frequent basis, occurring at least once to twice daily. Currently her morning stiffness in the hands and elbows is lasting up to 30 minutes in duration. She denies any Raynaud s symptoms. She has had no new rashes. No fevers. She does experience diffuse myalgias that wax and wane from day to day. The patient currently uses liniments alternating with a heating pad for relief. She has had no gross hematuria. No melena or hematochezia, no history of peptic ulcer disease or GI bleeding, cough, pleurisy, shortness of breath, chest pain or palpitations.nv Jaycee Fox a 68 year oldfemalepresenting for care. Hector Cardoza MD [facility], [phone], [facility] 11/03/2023 18:40:34 4 text/html Room Number: 7Reason for visit: Trigger finger of R thumb fingerDominant Hand: rightNew Injury: nkiDate of injury: nkiHow injury occurred: nkiX-rays done: noPain Scale: 3/10Description of pain: dull, stabbing, aching - intermittentPain wakes at night: noWork status: retiredTransfer of Care or Consult:Referring provider: [ ] Jaycee Fox a 68 year oldfemalepresenting for care. Visit Reason: Hand Hand/Wrist Concerns: -Location: -on both the radial and ulnar sides of the right hand, involving the right thumb, ring finger -Setting of injury/concern: Ring finger catches when I wake up in the morning -Sports related injury: no -Duration: approximately 6 week(s) -Pain onset/timing: gradual onset, occurs intermittently, occurs at night, does not interrupt sleep -Severity of pain: current severity 4/10 -Quality of pain: aching, burning, electric/shooting -Exacerbating factors: gripping/squeezing objects, lifting objects, cold/damp weather -Alleviating factors: ice, medications, stretching -Patient complains of: catching/locking, deformity, popping/clicking -Denies: ecchymosis, drainage, fevers, warmth, instability, limited ROM, numbness, erythema, swelling of surrounding area, tingling, wound/laceration of the affected area -Prior hand/wrist surgery: patient denies -Pain impacting ADLs: yes Treatments: -Seen by outside providers: yes, per patient I saw Dr Cardoza for a regular checkup for fibromyalgia and arthritis and he referred me to you. -Denies prior: acupuncture, chiropractic treatments, injections, Medications, occupational therapy, physical therapy, surgery -Prior injury/difficulty with affected area: patient denies Additional Information: -[facility] Referral: No -Concern origination: Home -Hand dominance: right hand dominant ROS: General:Negative Cardiac:Negative Respiratory:Negative GI:Negative :Negative Musculoskeletal:Back Pain, Joint Stiffness, Joint Swelling Skin:Negative Neuro:Negative Endo:Negative Hem:Negative Augustina Elam MD [address] [place] [address], [phone], [facility] 11/13/2023 19:31:48 4 text/html Room Number: 1063Reason for visit: R thumbDominant Hand: rightDate of injury: NKIHow injury occurred: NKIPain Scale: 4/10Symptoms: TIGHTNESSDescription of pain: ACHING - CONSTANTPain wakes at night: NOWork status: RETIREDAdditional comments: [ ]Transfer of Care or Consult: [ transfer of care ][ consult ]Referring provider: [ ] Jaycee Fox a 68 year oldfemalepresenting for care. Augustina Elam MD [address] [place] [address], [phone], [facility] 12/10/2023 17:04:24 4 text/html The patient is a 68-year-old female with FMS, osteoarthritis and chronic mechanical lower back pain, who is here for a followup visit today. She continues on low dose meloxicam and her pregabalin. She reports tolerating her medications well. She has more good days than bad days. In fact, today she rates her pain a 2/10 on a scale with only 5 minutes of morning stiffness. She keeps active on her feet and enjoys watching her grandchildren run track meets and play sports. She keeps as busy as possible on her feet as she feels better if she keeps moving. She has less inactivity gelling. Currently she is not requiring the use of an assistive device for ambulation. On review of systems, she has had no fever, chills, skin rash, headache, oral aphthae, cough, pleurisy, shortness of breath, chest pain, palpitations, melena or hematochezia, diarrhea or constipation. No peripheral swelling or issues with vertigo. No excessive sedation from the medications. Her appetite is normal. Energy level fair.alyssa Jaycee Fox a 68 year oldfemalepresenting for care. Hector Cardoza MD [address] [place] [address], [phone], [facility] 02/10/2024 21:23:08 OBGyn Episode No OBEpisode recorded.
--- OUTSIDE RECORDS SUMMARY | 2024-06-27 13:55 | XMS_ITS | Clinical Summary ---
Author Organization [facility] Address [address] [place] [address] Phone Care Team Providers Care Field Kiln Burner Name Role Phone JESSICA ANTON, NATA BURCIAGA MD, SCOTT Primary Care Provider [phone] Reason for Visit and Chief Complaint NO SHOW Plan of Treatment No Plan of Treatment Recorded Assessments Includes: Assessments from this encounter No Assessments Recorded Medical Equipment - Implanted Devices Includes: Current Devices No Medical Equipment Recorded Medications Includes: Medications discussed during this encounter and other current Medications Current Medications (continue as prescribed) Lyrica 150 MG Oral Capsule 04/06/2019 Provider: Daysi MART Diagnosis: 1 CAPSULE TWO TIMES A DAY Last Documented On 9 12:13PM By ARMAAN MART ; [facility] Lyrica 150MG Oral Capsule 12/11/2018 Provider: ARMAAN MAJOR Diagnosis: Radiculopathy, l umbar region TAKE 1 CAPSULE BY MOUTH TWICE DAILY Last Documented On 9 10:15AM By ARMAAN MART ; [facility] Losartan Potassium-HCTZ 50-12.5MG Oral Tablet 08/23/19 19 Provider: Diagnosis: Last Documented On 08/22/2018 8:25AM By Aracelis LARA ; [facility] Nabumetone 750MG Oral Tablet 08/22/2018 Provider: Diagnosis: Last Documented On 08/22/2018 8:26AM By Aracelis LARA ; [facility] Lasix 40MG Oral Tablet 08/22/2018 Provider: Diagnosis: Last Documented On 08/22/2018 8:26AM By Aracelis LARA ; [facility] Metoprolol Succinate ER 50MG Oral Tablet, extended-release 24 hour 08/22/2018 Provider: Diagnosis: Last Documented On 08/22/2018 8:24AM By Aracelis LARA ; [facility] [place] 10-325MG Oral Tablet 08/22/2018 Provider: Diagnosis: Last Documented On 08/22/2018 8:24AM By Aracelis LARA ; [facility] Cymbalta 30MG Oral Capsule, delayed-release particles 08/22/2018 Provider: Diagnosis: Last Documented On 08/22/2018 8:23AM By Aracelis LARA ; [facility] Crestor 20MG Oral Tablet 08/22/2018 Provider: Diagnosis: Last Documented On 08/22/2018 8:23AM By Aracelis LARA ; [facility] Ativan 0.5MG Oral Tablet 08/22/2018 Provider: Diagnosis: Last Documented On 08/22/2018 8:22AM By Aracelis LARA ; [facility] Medications Administered Includes: Administered Medications from this encounter No Administered Medications Recorded Results Includes: Results discussed during this encounter No Results Recorded For Specified Dates History of Present Illness Includes: History of Present Illness from this encounter No History of Present Illness Recorded Social History No Social History Recorded - Smoking Status Unknown Medical History Includes: Medical History addressed during this encounter No Medical History Recorded Family History Includes: Family History addressed during this encounter No Family History Recorded Review of Systems Includes: Review of Systems from this encounter No Review of Systems Recorded Mental Status Includes: Mental Status from this encounter No Mental Status Recorded Functional Status Includes: Functional Status from this encounter No Functional Status Recorded Physical Exam Includes: Physical Exam from this encounter No Physical Exam Recorded Allergies Includes: Active Allergies No Known Allergies Encounters Encounter Provider Location Date Check-In Time Check-Out Time Diagnosis NO SHOW ARMAAN [facility]- 10/24/2018 9:19AM 11:59PM Insurance Includes: Active Insurance Policies Plan Name Member ID Group # Subscriber Relationship Effect cesar Dates 1 - [facility] [id number] DANK ALEXIS Self Clinical Notes Includes: Clinical Notes from this encounter No Clinical Notes Recorded
--- OUTSIDE RECORDS SUMMARY | 2024-06-27 13:56 | XMS_ITS | Clinical Summary ---
Author Organization [facility] Address [address] [place] [address] Phone Care Team Providers Care Manager Technical Name Role Phone JESSICA ANTON, NATA BURCIAGA MD, SCOTT Primary Care Provider [phone] Reason for Visit and Chief Complaint * PHONE CALL Plan of Treatment No Plan of Treatment Recorded Assessments Includes: Assessments from this encounter No Assessments Recorded Medical Equipment - Implanted Devices Includes: Current Devices No Medical Equipment Recorded Medications Includes: Medications discussed during this encounter and other current Medications New / Renewed during this visit ARMAAN MART on 04/06/2019 Lyrica 150 MG Oral Capsule Provider: ARMAAN MAJOR 30 day supply: 60 capsule, 0 refills Diagnosis: 1 CAPSULE TWO TIMES A DAY Pharmacy: [facility] [address], [phone] - Last Documented On 9 12:13PM By ARMAAN MART ; [facility] Current Medications (continue as prescribed) Lyrica 150MG Oral Capsule 12/11/2018 Provider: ARMAAN MAJOR Diagnosis: Radiculopathy, l umbar region TAKE 1 CAPSULE BY MOUTH TWICE DAILY Last Documented On 9 10:15AM By ARMAAN MART ; [facility] Losartan Potassium-HCTZ 50-12.5MG Oral Tablet 08/23/19 19 Provider: Diagnosis: Last Documented On 08/22/2018 8:25AM By Aracelis LARA ; [facility] Nabumetone 750MG Oral Tablet 08/22/2018 Provider: Diagnosis: Last Documented On 08/22/2018 8:26AM By Aracelis LARA ; [facility] Lasix 40MG Oral Tablet 08/22/2018 Provider: Diagnosis: Last Documented On 08/22/2018 8:26AM By Aracelis LARA ; [facility] Metoprolol Succinate ER 50MG Oral Tablet, extended-release 24 hour 08/22/2018 Provider: Diagnosis: Last Documented On 08/22/2018 8:24AM By Aracelis LARA ; [facility] [place] 10-325MG Oral Tablet 08/22/2018 Provider: Diagnosis: Last Documented On 08/22/2018 8:24AM By Aracelis LARA ; [facility] Cymbalta 30MG Oral Capsule, delayed-release particles 08/22/2018 Provider: Diagnosis: Last Documented On 08/22/2018 8:23AM By Aracelis LARA ; [facility] Crestor 20MG Oral Tablet 08/22/2018 Provider: Diagnosis: Last Documented On 08/22/2018 8:23AM By Aracelis LARA ; [facility] Ativan 0.5MG Oral Tablet 08/22/2018 Provider: Diagnosis: Last Documented On 08/22/2018 8:22AM By Aracelis LARA ; [facility] Medications Administered Includes: Administered Medications from this encounter No Administered Medications Recorded Results Includes: Results discussed during this encounter No Results Recorded For Specified Dates History of Present Illness Includes: History of Present Illness from this encounter No History of Present Illness Recorded Social History Description Last Updated Smoking status : Current everyday smoker 10/30/2018 Last Documented On 9 9:58AM ; [facility] Cigarette smoking 10 pack(s)/day 019 Last Documented On 9 9:58AM ; [facility] 09/04/2018 Last Documented On 9 9:58AM ; [facility] No consumption of alcohol 09/04/2018 Last Documented On 9 9:58AM ; [facility] Not using drugs 09/04/2018 Last Documented On 9 9:58AM ; [facility] Smoking cigarettes per day 09/04/2018 Last Documented On 9 9:58AM ; [facility] Tobacco use 09/04/2018 Last Documented On 9 9:58AM ; [facility] Medical History Includes: Medical History addressed during [...] Location Date Check-In Time Check-Out Time Diagnosis * PHONE CALL ARMAAN [facility]ILLASE[facility]OR [facility] 04/06/2019 9:58AM 11:59PM Insurance Includes: Active Insurance Policies Plan Name Member ID Group # Subscriber Relationship Effect cesar Dates 1 - [facility] [id number] DANK ALEXIS Self Clinical Notes Includes: Clinical Notes from this encounter No Clinical Notes Recorded
--- OUTSIDE RECORDS SUMMARY | 2024-06-27 13:56 | XMS_ITS | Clinical Summary ---
Author Organization [facility] Address [address] [place] [address] Phone Care Team Providers Care Radio Communications Superintendent Name Role Phone JESSICA ANTON, NATA BURCIAGA MD, SCOTT Primary Care Provider [phone] Reason for Visit and Chief Complaint The Chief Complaint is: follow up and MRI results Plan of Treatment Referrals To [facility] - [address] [place] [address] - Sacroiliitis, not elsewhere classified Note: consent for bilateral SI joint injections Last Documented On 9 7:07AM ; [facility] Assessments Includes: Assessments from this encounter Findings - Sacroiliitis [M46.1 - Sacroiliitis, not elsewhere classified] - Last Documented On 10/30/2018 1:56PM ; [facility] - Lumbar radiculopathy [M54.16 - Radiculopathy, lumbar region] - Last Documented On 10/30/2018 1:56PM ; [facility] - Fibromyalgia [M79.7 - Fibromyalgia] - Last Documented On 10/30/2018 1:56PM ; [facility] - Myalgia [M79.18 - Myalgia, other site] - Last Documented On 10/30/2018 1:56PM ; [facility] - Chronic pain syndrome [G89.4 - Chronic pain syndrome] - Last Documented On 10/30/2018 1:56PM ; [facility] Medical Equipment - Implanted Devices Includes: Current Devices No Medical Equipment Recorded Medications Includes: Medications discussed during this encounter and other current Medications Discontinued / Stopped on this date ARMAAN VILLASEÑOR [facility] on 10/04/2018 Lyrica 75MG Oral Capsule Provider: BRI MART Diagnosis: Radiculopathy, l umbar region Last Documented On 9 1:44PM By ARMAAN MART ; [facility] New / Renewed during this visit ARMAAN MART on 10/30/2018 Lyrica 150MG Oral Capsule Provider: ARMAAN MAJOR 30 day supply: 60 capsule, 0 refills Diagnosis: Radiculopathy, lumbar region 1 CAPSULE TWO TIMES A DAY Pharmacy: [address], [phone] - Last Documented On 9 10:10AM By ARMAAN MART ; [facility] Current Medications (continue as prescribed) Lyrica 150 MG Oral Capsule 04/06/2019 Provider: Daysi MART Diagnosis: 1 CAPSULE TWO TIMES A DAY Last Documented On 9 12:13PM By ARMAAN MART ; [facility] Lyrica 150MG Oral Capsule 12/11/2018 Provider: ARMAAN MAJOR Diagnosis: Radiculopathy, l umbar region TAKE 1 CAPSULE BY MOUTH TWICE DAILY Last Documented On 9 10:15AM By ARMAAN MART ; [facility] Losartan Potassium-HCTZ 50-12.5MG Oral Tablet 08/23/19 19 Provider: Diagnosis: Last Documented On 08/22/2018 8:25AM By Aracelis LARA ; [facility] Nabumetone 750MG Oral Tablet 08/22/2018 Provider: Diagnosis: Last Documented On 08/22/2018 8:26AM By Aracelis LARA ; [facility] Lasix 40MG Oral Tablet 08/22/2018 Provider: Diagnosis: Last Documented On 08/22/2018 8:26AM By Aracelis LARA ; [facility] Metoprolol Succinate ER 50MG Oral Tablet, extended-release 24 hour 08/22/2018 Provider: Diagnosis: Last Documented On 08/22/2018 8:24AM By Aracelis LARA ; [facility] [place] 10-325MG Oral Tablet 08/22/2018 Provider: Diagnosis: Last Documented On 08/22/2018 8:24AM By Aracelis LARA ; [facility] Cymbalta 30MG Oral Capsule, delayed-release particles 08/22/2018 Provider: Diagnosis: Last Documented On 08/22/2018 8:23AM By Aracelis LARA ; [facility] Crestor 20MG Oral Tablet 08/22/2018 Provider: Diagnosis: Last Documented On 08/22/2018 8:23AM By Aracelis LARA ; [facility] Ativan 0.5MG Oral Tablet 08/22/2018 Provider: Diagnosis: Last Documented On 08/22/2018 8:22AM By Aracelis LARA ; [facility] Medications Administered Includes: Administered Medications from this encounter No Administered Medications Recorded Vital Signs Includes: Vital Signs from this encounter Vital Name 10/30/2018 01:13P Blood Pressure Sitting L 144/82 BP Cuff Size Regular Pulse Rate-Sitting (bpm) 48 Respiration Rate (breaths/min) 18 Height (in) 63 Weight (lb) 261 Body Mass Index (kg/m2) 46.2 Body Surface Area (m2) 2.2 Pain Level 2 Oxygen Saturation (%) 96 Last Documented: On 10/30/2018 1:15PM ; [facility] Results Includes: Results discussed during this encounter No Results Recorded For Specified Dates History of Present Illness Includes: History of Present Illness from this encounter FRANCES ALEXIS is a 63 year old female. Patient presents in follow up for lumbar radiculopathy and MRI. She finished therapy with no improvement, 8 sessions. She started Lyrica and it has helped with leg pain as well as the feeling of widespread pain. She does still have low back/buttock pain with pain in the posterior thighs, though this is better. Pain is worse with sitting. MRI showed facet arthropathy and mild stenosis at L1-2, otherwise no other stenosis. Xrays shows facet arthropathy. Nabumatome BID helps some. - Medication list reviewed with patient - Prescription Drug Monitoring Program website checked. - Last dose of medication? doesn't take controlled medication. just Lyrcia and Nabumetone Social History Description Last Updated Smoking status : Current everyday smoker 10/30/2018 Last Documented On 9 1:56PM ; [facility] Cigarette smoking 10 pack(s)/day 019 Last Documented On 9 1:09PM ; [facility] 09/04/2018 Last Documented On 9 1:09PM ; [facility] No consumption of alcohol 09/04/2018 Last Documented On 9 1:09PM ; [facility] Not using drugs 09/04/2018 Last Documented On 9 1:09PM ; [facility] Smoking cigarettes per day 09/04/2018 Last Documented On 9 1:09PM ; [facility] Tobacco use 09/04/2018 Last Documented On 9 1:09PM ; [facility] Medical History Includes: Medical History addressed during this encounter No Medical History Recorded Family History Includes: Family History addressed during this encounter No Family History Recorded Review of Systems Includes: Review of Systems from this encounter Systemic: No fever, no chills, and no recent weight change. Head: No headache. Cardiovascular: No chest pain or discomfort. Pulmonary: No dyspnea. Gastrointestinal: No nausea and no vomiting. Genitourinary: No dysuria. Hematologic: No tendency for easy bruising. Musculoskeletal: Lower back pain and muscle aches. Neurological: No dizziness, no vertigo, no motor disturbances, and no sensory disturbances. Psychological: No anxiety, no depression, and no sleep apnea. Skin: No rash. Mental Status Includes: Mental Status from this encounter Description Oriented to time, place, and person No anxiety Functional Status Includes: Functional Status from this encounter No Functional Status Recorded Physical Exam Includes: Physical Exam from this encounter Allergies Includes: Active Allergies No Known Allergies Encounters Encounter Provider Location Date Check-In Time Check-Out Time Diagnosis CHECK UP ARMAAN [facility] 9 12:52PM 1:54PM Chronic Pain Syndrome,Sacr oiliitis,Lumb ar Radiculopathy ,Fibromyalgia ,Myalgia Insurance Includes: Active Insurance Policies Plan Name Member ID Group # Subscriber Relationship Effect cesar Dates 1 - [facility] [id number] DANK ALEXIS Self Clinical Notes Includes: Clinical Notes from this encounter No Clinical Notes Recorded
--- OUTSIDE RECORDS SUMMARY | 2024-06-27 13:56 | XMS_ITS | Clinical Summary ---
Author Organization [facility] Address [address] [place] [address] Phone Care Team Providers Care Airborne Mission Systems Name Role Phone JESSICA ANTON, NATA BURCIAGA MD, SCOTT Primary Care Provider [phone] Reason for Visit and Chief Complaint The Chief Complaint is: Pt here today for 2wk f/u injection. The first week after the injection shehad 80% relief. She feels it has maintained the 80% Plan of Treatment No Plan of Treatment Recorded Assessments Includes: Assessments from this encounter Findings - Sacroiliitis [M46.1 - Sacroiliitis, not elsewhere classified] - Last Documented On 11/22/2018 1:27PM ; [facility] - Lumbar radiculopathy [M54.16 - Radiculopathy, lumbar region] - Last Documented On 11/22/2018 1:27PM ; [facility] - Fibromyalgia [M79.7 - Fibromyalgia] - Last Documented On 11/22/2018 1:27PM ; [facility] - Myalgia [M79.18 - Myalgia, other site] - Last Documented On 11/22/2018 1:27PM ; [facility] - Chronic pain syndrome [G89.4 - Chronic pain syndrome] - Last Documented On 11/22/2018 1:27PM ; [facility] Medical Equipment - Implanted Devices [...] Lyrica 150MG Oral Capsule 12/11/2018 Provider: ARMAAN VILLASEÑOR [facility] Diagnosis: Radiculopathy, l umbar region TAKE 1 CAPSULE BY MOUTH TWICE DAILY Last Documented On 9 10:15AM By ARMAAN VILLASEÑOR [facility] ; [facility] Losartan [...] LARA ; [facility] [place] 10-325MG Oral Tablet 08/22/2018 Provider: Diagnosis: Last [...] LARA ; [facility] Medications Administered Includes: Administered Medications from this encounter No Administered Medications Recorded Vital Signs Includes: Vital Signs from this encounter Vital Name 11/22/2018 01:05P Blood Pressure Sitting L 126/80 BP Cuff Size Large Pulse Rate-Sitting (bpm) 76 Pulse Rhythm Regular Respiration Rate (breaths/min) 18 Height (in) 63 Weight (lb) 261 Body Mass Index (kg/m2) 46.2 Body Surface Area (m2) 2.2 Pain Level 2 Last Documented: On 11/22/2018 1:07PM ; [facility] Results Includes: Results discussed during this encounter No Results Recorded For Specified Dates History of Present Illness Includes: History of Present Illness from this encounter FRANCES ALEXIS is a 63 year old female. Patient presents in follow up bilateral SI joint injections. She reports 80% relief overall. There are days she has a little more pain. She does her HEP and she has a hot tub she uses. Xrays shows facet arthropathy. Lyrica has really helped her widespread pain. Nabumatome BID helps some. - Medication list reviewed with patient - Prescription Drug Monitoring Program website checked. 09/04/18 - Last dose of medication? took last hydrocodone yesterday Social History Description Last Updated Smoking status : Current everyday smoker 10/30/2018 Last Documented On 9 1:01PM ; [facility] Cigarette smoking 10 pack(s)/day 019 Last Documented On 9 1:01PM ; [facility] 09/04/2018 Last Documented On 9 1:01PM ; [facility] No consumption of alcohol 09/04/2018 Last Documented On 9 1:01PM ; [facility] Not using drugs 09/04/2018 Last Documented On 9 1:01PM ; [facility] Smoking cigarettes per day 09/04/2018 Last Documented On 9 1:01PM ; [facility] Tobacco use 09/04/2018 Last Documented On 9 1:01PM ; [facility] Medical History Includes: Medical History [...] dyspnea. Gastrointestinal: No nausea and no vomiting. Hematologic: No tendency for easy bruising. Musculoskeletal: [...] Location Date Check-In Time Check-Out Time Diagnosis PAIN MANAGEMENT FOLLOW UP ARMAAN VILLASEÑOR [facility] 11/23/19 19 12:56PM 1:30PM Chronic Pain Syndrome,Sacr oiliitis,Lumb ar Radiculopathy ,Fibromyalgia ,Myalgia Insurance Includes: Active Insurance Policies Plan Name Member ID Group # Subscriber Relationship Effect cesar Dates 1 - [facility] [id number] DANK ALEXIS Self Clinical Notes Includes: Clinical Notes from this encounter No Clinical Notes Recorded
--- OUTSIDE RECORDS SUMMARY | 2024-06-27 13:56 | XMS_ITS ---
Care Plan - [facility] Created on: June 27, 2024 DANK ALEXIS : 1955 Sex: Female Author Organization [facility] Address [address] [place] [address] Phone Care Team Providers Care Casting Cleaner Name Role Phone JESSICA ANTON, NATA BURCIAGA MD, SCOTT Primary Care Provider [phone]
--- OUTSIDE RECORDS SUMMARY | 2024-06-27 13:56 | XMS_ITS | Encounter Summary ---
Author Organization [facility] Address [address] [place] [address] Care Team Providers Care Electric Repair Supervisor Name Role Phone Jeane Archuleta CAMILLE Primary Care Provider [phone] Melissa Jj MD Unavailable Christiano Quijano MD Unavailable [phone] Belgica Hernandez PA-C Unavailable + [phone] Encounter Details Date Type Department Care Team (Latest Contact Info) Description 06/26/2024 Travel Social History Tobacco Use Types Packs/Day Years Used Date Smoking Tobacco: Every Day Smokeless Tobacco: Never Alcohol Use Standard Drinks/Week Comments Not Currently 0 (1 standard drink = 0.6 oz pur e alcohol) Comments Unknown Sex and Gender Information Value Date Recorded Sex Assigned at Female 06/26/2024 9:45 AM HYDRAULIC STRAINER OPERATOR Legal Sex Female 10:24 PM CDT Gender Identity Female 08/05/2021 9:03 AM CDT Sexual Orientation Not on file documented as of this encounter Plan of Treatment Upcoming Encounters Date Type Department Care Team (Late st Contact Info) Description 09/03/2024 8:45 AM CDT Office Visit [facility] [address] [place] [address] Melissa Jj MD [address] [place] [address] 09/25/2024 1:15 AM CDT Allied Health/Nurse Visit [facility] [address] [place] [address] Christiano Quijano MD [address] [place], [place] [address] documented as of this encounter Visit Diagnoses Not on filedocumented in this encounter Care Teams Electric Repair Supervisor Relationship Specialty Start Date End Date Jeane Archuleta APNP [address] [place] [address] PCP - General 02/10/23 Melissa Jj MD [address] [place], [place] [address] Consulting Physician CARDIOVASCULAR DISEASE 02/22/23 Christiano Quijano MD [address] [place] [address] Consulting Physician CLINICAL CARDIAC ELECTROPHYSIOLOGY 04/03/24 Belgica Hernandez PA-C [address] [place], [place] [address] Referring Physician PHYSICIAN BASE ENGINEER 04/03/24 documented as of this encounter
--- OUTSIDE RECORDS SUMMARY | 2024-06-27 13:56 | XMS_ITS | Encounter Summary ---
Author Organization [facility] Address [address] [place] [address] Care Team Providers Care Electric Motors Salesperson Name Role Phone Jeane Archuleta CAMILLE Primary Care Provider + [phone] Melissa Jj MD Unavailable Christiano Quijano MD Unavailable [phone] Belgica Hernandez PA-C Unavailable + [phone] Encounter Details Date Type Department Care Team (Late Contact Info) Description 03/13/2024 Spiceworkst Message Enc [facility] [address] [place] [address] [facility] Provider Echo results Social History Tobacco Use Types Packs/Day Years Used Date Smoking Tobacco: Every Day Smokeless Tobacco: Never Alcohol Use Standard Drinks/Week Comments Not Currently 0 (1 standard drink = 0.6 oz pur e alcohol) Comments Unknown Sex and Gender Information Value Date Recorded Sex Assigned at Female 06/26/2024 9:45 AM BAR HOSTESS Legal Sex Female 10:24 PM CDT Gender Identity Female 08/05/2021 9:03 AM CDT Sexual Orientation Not on file documented as of this encounter Plan of Treatment Upcoming Encounters Date Type Department Care Team (Late Contact Info) Description 09/03/2024 8:45 AM CDT Office Visit [facility] [facility] [address] [place] [address] Melissa Jj MD [address] [place], [place] [address] 09/25/2024 1:15 AM CDT Allied Health/Nurse Visit [facility] [address] [place] [address] Christiano Quijano MD [address] [place] [address] documented as of this encounter Visit Diagnoses Not on filedocumented in this encounter Care Teams Electric Motors Salesperson Relationship Specialty Start Date End Date Jeane Archuleta APNP [address] [place] [address] PCP - General 02/10/23 Melissa Jj MD [address] [place] [address] Consulting Physician CARDIOVASCULAR DISEASE 02/22/23 Christiano Quijano MD [address] [place] [address] Consulting Physician CLINICAL CARDIAC ELECTROPHYSIOLOGY 04/03/24 Belgica Hernandez PA-C [address] [place] [address] Referring Physician PHYSICIAN BANKING ATTORNEY 04/03/24 documented as of this encounter
--- OUTSIDE RECORDS SUMMARY | 2024-06-27 13:56 | XMS_ITS | Encounter Summary ---
Author Organization [facility] Address [address] [place] [address] Care Team Providers Care Lockmaker Name Role Phone Jeane Archuleta CAMILLE Primary Care Provider + [phone] Melissa Jj MD Unavailable Christiano Quijano MD Unavailable [phone] Belgica Hernandez PA-C Unavailable + [phone] Encounter Details Date Type Department Care Team (Late Contact Info) Description 03/22/2023 Invincea Message Enc [facility] [address] [place] [address] [place], [facility] Provider echo Social History Tobacco Use Types Packs/Day Years Used Date Smoking Tobacco: Every Day Smokeless Tobacco: Never Alcohol Use Standard Drinks/Week Comments Not Currently 0 (1 standard drink = 0.6 oz pur e alcohol) Comments Unknown Sex and Gender Information Value Date Recorded Sex Assigned at Female 06/26/2024 9:45 AM PIE ICER MACHINE Legal Sex Female 10:24 PM CDT Gender Identity Female 08/05/2021 9:03 AM CDT Sexual Orientation Not on file documented as of this encounter Plan of Treatment Upcoming Encounters Date Type Department Care Team (Late Contact Info) Description 09/03/2024 8:45 AM CDT Office Visit [facility] [facility] [address] [place] [address] Melissa Jj MD [address] [place], [place] [address] 09/25/2024 1:15 AM CDT Allied Health/Nurse Visit [facility] [address] [place] [address] Christiano Quijano MD [address] [place] [address] documented as of this encounter Visit Diagnoses Not on filedocumented in this encounter Care Teams Lockmaker Relationship Specialty Start Date End Date Jeane Archuleta APNP [address] [place] [address] PCP - General 02/10/23 Melissa Jj MD [address] [place] [address] Consulting Physician CARDIOVASCULAR DISEASE 02/22/23 Christiano Quijano MD [address] [place] [address] Consulting Physician CLINICAL CARDIAC ELECTROPHYSIOLOGY 04/03/24 Belgica Hernandez PA-C [address] [place] [address] Referring Physician PHYSICIAN MANDARIN SPEAKING NANNY 04/03/24 documented as of this encounter
--- OUTSIDE RECORDS SUMMARY | 2024-06-27 13:56 | XMS_ITS | Clinical Summary ---
Author Organization [facility] Address [address] [place] [address] Phone Care Team Providers Care Wood Panel Inspector Name Role Phone JESSICA ANTON, NATA BURCIAGA MD, SCOTT Primary Care Provider [phone] Reason for Visit and Chief Complaint PAIN MANAGEMENT FOLLOW UP Plan of Treatment No Plan of Treatment [...] On 9 12:13PM By ARMAAN MART ; [facility] Lyrica 150MG Oral Capsule 12/11/2018 Provider: ARMAAN MAJOR Diagnosis: Radiculopathy, l umbar region TAKE 1 CAPSULE BY MOUTH TWICE DAILY Last Documented On 9 10:15AM By ARMAAN MART ; [facility] Losartan Potassium-HCTZ 50-12.5MG Oral Tablet 08/23/19 19 Provider: Diagnosis: Last Documented On 08/22/2018 8:25AM By Aracelis LARA ; [facility] Nabumetone 750MG Oral Tablet 08/22/2018 Provider: Diagnosis: Last Documented On 08/22/2018 8:26AM By Aracelis LARA ; [facility] Lasix 40MG Oral Tablet 08/22/2018 Provider: Diagnosis: Last Documented On 08/22/2018 8:26AM By Aracelis LARA ; [facility] Metoprolol Succinate ER 50MG Oral Tablet, extended-release 24 hour 08/22/2018 Provider: Diagnosis: Last Documented On 08/22/2018 8:24AM By Aracelis LARA ; [facility] [place] 10-325MG Oral Tablet 08/22/2018 Provider: Diagnosis: Last Documented On 08/22/2018 8:24AM By Aracelis LARA ; [facility] Cymbalta 30MG Oral Capsule, delayed-release particles 08/22/2018 Provider: Diagnosis: Last Documented On 08/22/2018 8:23AM By Aracelis LARA ; [facility] Crestor 20MG Oral Tablet 08/22/2018 Provider: Diagnosis: Last Documented On 08/22/2018 8:23AM By Aracelis LARA ; [facility] Ativan 0.5MG Oral Tablet 08/22/2018 Provider: Diagnosis: Last Documented On 08/22/2018 8:22AM By Aracelis LARA ; [facility] Medications Administered Includes: Administered Medications [...] Allergies Includes: Active Allergies No Known Allergies Insurance Includes: Active Insurance Policies Plan Name Member ID Group # Subscriber Relationship Effect cesar Dates 1 - [facility] [id number] DANK Chapa Clinical Notes Includes: Clinical Notes from this encounter No Clinical Notes Recorded
--- OUTSIDE RECORDS SUMMARY | 2024-06-27 13:56 | XMS_ITS | Patient Health Summary ---
Author Organization [facility] Address [address] [place] [address] Care Team Providers Care Optical Designer Name Role Phone Bart Fortune MD Primary Care Provider [phone] Note from [facility] [place][note 2],non-owned Affiliates and Associated Physician Practices is amultiple site organization consisting of ambulatory clinics and hospital sitesin [place], [place], [place] and [place]. This disclosure is being madepursuant to the Care Everywhere program and may not contain all information available regarding this patient. Last updated 18.[facility] Allergies No known active allergies Medications * Be aware that medications may not be up to date on this document. Alwaysverify current medications with the patient. * METOPROLOL SUCCINATE ER PO * FENOFIBRATE MICRONIZED PO * LOSARTAN POTASSIUM PO * Furosemide (LASIX PO) Social History Tobacco Use Types Packs/Day Years [...] Mass Index 46.06 08/18/2016 2:45 PM CDT Care Teams Optical Designer Relationship Specialty Start Date End Date Bart Fortune MD [address] [place] [address] PCP - General Surgery 08/18/16
--- OUTSIDE RECORDS SUMMARY | 2024-06-27 13:56 | XMS_ITS | Clinical Summary ---
Author Organization [facility] Address [address] [place] [address] Care Team Providers Care Crozer Operator Name Role Phone Jefferson Archuleta CAMILLE Primary Care Provider [phone] Melissa Jj MD Unavailable Christiano Lobato MD Unavailable [phone] Belgica Hernandez PA-C Unavailable [phone] Allergies Active Allergy Reactions Criticality Noted Date Comments Seasonal Eyes Water & Itch,Runny Nose,Sneezing 02/23/2023 Medications furosemide (LASIX) 40 MG tablet Take 1 tablet (40 mg total) by mouth daily. Active CRESTOR 20 MG tablet Take 1 tablet (20 mg total) by mouth daily. Active metFORMIN ER (GLUCOPHAGE-XR ) 500 MG 24 hr tablet Take 1 tablet (500 mg total) by mouth every morning. FOR 14 DAYS 3 Active busPIRone (BUSPAR) 7.5 MG tablet Take 1 tablet (7.5 mg total) by mouth 2 (two) times daily. 3 Active LORazepam (ATIVAN) 0.5 MG tablet Take 1 tablet (0.5 mg total) by mouth nightly as needed for Anxiety. Active pregabalin (LYRICA) 150 MG capsule Take 1 capsule (150 mg total) by mouth 2 (two) times daily. 1 capsule AM and 2 in evening 3 Active Glucose Blood (CONTOUR NEXT TEST) test strip 1 strip by Other route as needed. Active Microlet Lancets Misc 1 Device by Does not apply route see administration instructions. Active Vitamin D3 125 mcg Tab Take 1 tablet (125 mcg total) by mouth daily. 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 [address] [place] [address] Christiano Lobato MD 04/06/2024 10:00 AM EXTRACTOR TENDER RAW STOCK Allied Health/Nurse [facility] [address] [place] [address] Christiano Lobato MD 04/06/2024 Travel from Last 3 Months Family History Medical History Relation Comments Stent Cardiac Father Heart Attack Paternal Grandfather Stroke Sister Relation Status Comments Father Paternal Grandfather Sister Social History Tobacco Use Types Packs/Day Years Used Date Smoking Tobacco: Every Day Smokeless Tobacco: Never Tobacco Cessation:Ready to Q uit: Not Asked; Counseling Given: Not Answered Alcohol Use Standard Drinks/Week Comments Not Currently 0 (1 standard drink = 0.6 oz pur e alcohol) Comments Unknown Sex and Gender Information Value Date Recorded Sex Assigned at Female 06/26/2024 9:45 AM EXTRACTOR TENDER RAW STOCK Legal Sex Female 10:24 PM CDT Gender Identity Female 08/05/2021 9:03 AM CDT Sexual Orientation Not on file Last Filed Vital Signs Vital Sign Reading Time Taken Comments Blood Pressure 136/82 06/26/2024 9:47 AM EXTRACTOR TENDER RAW STOCK Pulse 100 06/26/2024 9:47 AM EXTRACTOR TENDER RAW STOCK Temperature 37 C (98.6 F) 03/23/2024 12:52 PM EXTRACTOR TENDER RAW STOCK Respiratory Rate 18 06/26/2024 9:47 AM EXTRACTOR TENDER RAW STOCK Oxygen Saturation 94% 06/26/2024 9:47 AM EXTRACTOR TENDER RAW STOCK Inhaled Oxygen Concentration - - Weight 93.9 kg (207 lb) 06/26/2024 9:47 AM EXTRACTOR TENDER RAW STOCK Height 160 cm (5' 3 ) 06/26/2024 9:47 AM EXTRACTOR TENDER RAW STOCK Body Mass Index 36.67 06/26/2024 9:47 AM EXTRACTOR TENDER RAW STOCK Plan of Treatment Upcoming Encounters Date Type Department Care Team (Late st Contact Info) Description 09/03/2024 8:45 AM CDT Office Visit [facility] [address] [place] [address] Melissa Jj MD [address] [place], [place] [address] 09/25/2024 1:15 AM CDT Allied Health/Nurse Visit [facility] [address] [place] [address] Christiano Lobato MD [address] [place] [address] Health Maintenance Due Date Last Done Comments Colorectal Cancer Screening Colonoscopy (10 Years) 1955 Pneumococcal Vaccine: 65+ Years (1 of 2 - PCV) 1962 Hepatitis C 1974 Annual Medicare Wellness Visit 2021 Dexa Scan (General) 2021 COVID-19 Vaccine ( season) 2024 03/28/2023, 03/09/2022, 08/19/2021, Additional history exists Mammogram Screening 03/08/2025 03/08/2023, DTaP, Tdap and Td Vaccines (2 - Td or Tdap) 11/27/2029 11/28/2019 RSV Immunization or 60+ Years (1 - 1-dose 75+ series) 2031 Zoster Vaccines Completed 11/12/2020, 11/28/2019 Influenza Adult Completed 02/10/2024, 02/14, 02/17/2021, Additional history exists Meningococcal B Vaccine Aged Out No l onger eligible based on patient's age to complete this topic Meningococcal Vaccine Aged Out No ricardo henny eligible based on patient's age to complete this topic RSV Immunizations Under 20 Months Aged Out No longer eligible based on patient's age to complete this topic Medical Devices Implanted Type Area Director Veterinary Device Identifier Shelf Expiration Date Model / Serial / Lot Medtronic Selectsecure Rv/Lbb/His-2023 Implanted:2023 by Christiano Lobato MD (Quantity not on file) Lead Implant [employer] 01/30/2026 [id number] / [id number] / Medtronic Capsurefix Ra-03/23/2024 Implanted:2023 by Christiano Lobato MD (Quantity not on file) Lead Implant [employer] 01/19/2026 [id number] / [id number] / Medtronic Adia Mri Dr-03/23/2024 Implanted:2023 by Christiano Lobato MD (Quantity not on file) Pacemaker [employer] 07/13/2025 [id number] / [id number] / Description:DX: SND Procedures Procedure Name Priority Date/Time Associated Diagnosis Comments ELECTROCARDIOGRAM (NON MIDMARK ACQUIRED) Routine 06/26/2024 10:07 AM EXTRACTOR TENDER RAW STOCK Pacemaker Bradycardia Sinus node dysfunction ([facility]/HCC [facility]/HCC) Procedure Note - 06/26/2024 10:07 AM CSTThis note is in progress. [facility] [place] [address] [place] [address] Test Date: 2024-06-26 Pat Name: JAYCEE ESPINOSA Department: 105 Room: Gender: Female Elementary Assistant Teacher: abiodun : 1955 Requested By: CHRISTIANO LOBATO Order Number: [id number] Bernice MD: CHRISTIANO LOBATO Measurements Intervals [place] Rate: 63 P: 161 DE: 183 QRS: -16 QRSD: 98 T: 45 QT: 386 QTc: 398 Interpretive Statements ELECTRONIC ATRIAL PACEMAKER ABNORMAL RHYTHM ECG MG SCREENING W IRENE JULES DIGI Routine 03/08/2023 1:52 PM CDT Screening mammogram, encounter for from Last 3 Months or Most Recently Relevant to Health Maintenance Results * MG SCREENING W IRENE JULES DIGI (03/08/2023 1:52 PM CDT) Anatomical Region Laterality Modality Breast Bilateral Mammography 03/08/2023 5:17 PM CDT Narrative 03/08/2023 5:17 PM CDT Examination: Digital screening mammogram with CAD. Clinical history: Asymptomatic patient presents for routine screening. Comparison: 11/12/2020, 11/09/2019, 09/07/2018. Technique: Bilateral digital mammograms. The exam was interpreted with the use of a computer-aided detection (CAD) system. Additional 3-D tomosynthesis images were acquired. Tissue density: The breast tissue contains scattered fibroglandular densities. Findings: The breast tissue contains scattered fibroglandular densities. Benign-appearing calcification noted. No suspicious mass, microcalcification or area of architectural distortion can be identified. From a mammographic standpoint, routine followup in one year would seem adequate. IMPRESSION: No suspicious change since the previous exams. Recommendation: 1: Routine Screening Bilateral in 1 Year Assessment: ACR BI-RADS 2 - BENIGN FINDING(S) Ordered By: JEFFERSON ARCHULETA Interpreted By: Miguel Herman MD, 03/08/2023 5:17 PM Jefferson Archuleta APNP MAMMO Final Resu lt from Last 3 Months or Most Recently Relevant to Health Maintenance Insurance MEDICARE AARP Advance Directives * Full Code (Latest Code Status on File) Date Activated Date Inactivated Comments 03/23/2024 4:14 PM 03/23/2024 7:23 PM Care Teams Crozer Operator Relationship Specialty Start Date End Date Jefferson Archuleta APNP [address] [facility] [place] [address] PCP - General 02/10/23 Melissa Jj MD [address] [place] [address] Consulting Physician CARDIOVASCULAR DISEASE 02/22/23 Christiano Lobato MD [address] [place] [address] Consulting Physician CLINICAL CARDIAC ELECTROPHYSIOLOGY 04/03/24 Belgica Hernandez PA-C [address] [place], [place] [address] Referring Physician PHYSICIAN PATTERNMAKER BENCH 04/03/24
--- OUTSIDE RECORDS SUMMARY | 2024-06-27 13:56 | XMS_ITS | Encounter Summary ---
Author Organization [facility] Address [address] [place] [address] Care Team Providers Care Gm Mobile Name Role Phone Jeane Archuleta CAMILLE Primary Care Provider +- [phone] eMlissa Jj MD Unavailable Christiano Lobato MD Unavailable [phone] Belgica Hernandez PA-C Unavailable [phone] Reason for Visit * Reason Comments Follow Up Encounter Details Date Type Department Care Team (Late st Contact Info) Description 06/26/2024 10:00 AM MANNEQUIN MOLD MAKER Office Visit [facility] el [address] [place] [address] Belgica Hernandez PA-C [address] [place], [place] [id number] Follow Up Social History Tobacco Use Types Packs/Day Years Used Date Smoking Tobacco: Every Day Smokeless Tobacco: Never Alcohol Use Standard Drinks/Week Comments Not Currently 0 (1 standard drink = 0.6 oz pur e alcohol) Comments Unknown Sex and Gender Information Value Date Recorded Sex Assigned at Female 06/26/2024 9:45 AM MANNEQUIN MOLD MAKER Legal Sex Female 10:24 PM CDT Gender Identity Female 08/05/2021 9:03 AM CDT Sexual Orientation Not on file documented as of this encounter Last Filed Vital Signs Vital Sign Reading Time Taken Comments Blood Pressure 136/82 06/26/2024 9:47 AM MANNEQUIN MOLD MAKER Pulse 100 06/26/2024 9:47 AM MANNEQUIN MOLD MAKER Temperature - - Respiratory Rate 18 06/26/2024 9:47 AM MANNEQUIN MOLD MAKER Oxygen Saturation 94% 06/26/2024 9:47 AM MANNEQUIN MOLD MAKER Inhaled Oxygen Concentration - - Weight 93.9 kg (207 lb) 06/26/2024 9:47 AM MANNEQUIN MOLD MAKER Height 160 cm (5' 3 ) 06/26/2024 9:47 AM MANNEQUIN MOLD MAKER Body Mass Index 36.67 06/26/2024 9:47 AM MANNEQUIN MOLD MAKER documented in this encounter Progress Notes * Belgica Hernandez PA-C - 06/26/2024 10:00 AM CST Images from the original note were not included. Cardiac Electrophysiology Clinic Note PATIENT NAME: Jaycee Espinosa : 1955 REFERRING PROVIDER: Melissa Jj MD PCP: [facility] KATHLEEN PRIMARY CARDIOLOGY PROVIDER: Melissa Jj MD Reason for Visit Cardiac electrophysiology follow-up for sinus node dysfunction History of Present Illness I had the pleasure of seeing Jaycee Espinosa in the Cardiac Electrophysiology Clinic at [facility]. As you are aware, Jaycee Espinosa is a 69-year-old female with PMH of sinus node dysfunction, diabetes mellitus type 2, and hyperlipidemia. She has history of sinus bradycardia which has been progressively worsening. She was seen in cardiology clinic by Dr. Jj was noted to be bradycardic with a heart rate of 37 bpm. She underwent dual-chamber pacemaker implantation on 03/23/2024. She is here today for follow-up. States she has been feeling well. Her fatigue has improved since pacemaker implantation. Her incision site has healed without any issues. She denies any chest pain. Denies shortness of breath. Denies palpitations. Denies any orthopnea/PND. Denies any pedal edema. Denies dizziness. Denies any syncopal episodes. Device interrogation today reveals 96.6% atrial pacing and <01.% ventricular pacing. 4 atrial tachycardia episodes with the longest lasting 13 seconds. No ventricular arrhythmias noted. Battery longevity is estimated at 10.7 years. Diagnostics EKG - From today shows atrial paced rhythm. EKG image independently reviewed by me. Echo - from November 2023 shows LVEF of 65 to 70%. No significant valvular abnormalities. From 02/2023 shows LVEF of 60-65% . No significant valvular abnormalities Holter - From February 2023 shows underlying sinus node dysfunction. Diagnosis Sinus node dysfunction, s/p Medtronic dual-chamber pacemaker March 2024 Cardiac device in situ Diabetes mellitus type 2 Hyperlipidemia Recommendations Sinus node dysfunction: Status post successful implantation of a left-sided Medtronic dual chamber pacemaker on 03/23/24. She states her symptoms have improved. Incision remains well-healed. Cardiac device in situ: Her Medtronic dual-chamber pacemaker was interrogated today. Pacing thresholds, sensing, and lead impedance are all within normal limits. Battery remains above the elective replacement indicator and the device is functioning withing normal operational limits. No programming changes were made to device. Continue remote monitoring in 3 months. 2. Hyperlipidemia: Continue rosuvastatin. Follows with cardiology. Follow-up in office in 1 year or sooner if needed. Thank you for allowing me to participate in the care of Jaycee Espinosa. I spent 35 minutes today reviewing the patient's medical record, obtaining history, performing exam, ordering medications/test/and/or procedures, documenting, counseling and educating, and coordination of care. Medications Current Outpatient Medications: ??? busPIRone (BUSPAR) 7.5 MG tablet, Take 1 tablet (7.5 mg total) by mouth 2 (two) times daily., Disp: , Rfl: ??? CRESTOR 20 MG tablet, Take 1 tablet (20 mg total) by mouth daily., Disp: , Rfl: ??? furosemide (LASIX) 40 MG tablet, Take 1 tablet (40 mg total) by mouth daily., Disp: , Rfl: ??? Glucose Blood (CONTOUR NEXT TEST) test strip, 1 strip by Other route as needed., Disp: , Rfl: ??? LORazepam (ATIVAN) 0.5 MG tablet, Take 1 tablet (0.5 mg total) by mouth nightly as needed for Anxiety., Disp: , Rfl: ??? metFORMIN ER (GLUCOPHAGE-XR) 500 MG 24 hr tablet, Take 1 tablet (500 mg total) by mouth every morning. FOR 14 DAYS, Disp: , Rfl: ??? Microlet Lancets Misc, 1 Device by Does not apply route see administration instructions., Disp:, Rfl: ??? pregabalin (LYRICA) 150 MG capsule, Take 1 capsule (150 mg total) by mouth 2 (two) times daily.1 capsule AM and 2 in evening, Disp: , Rfl: ??? Vitamin D3 125 mcg Tab, Take 1 tablet (125 mcg total) by mouth daily., Disp: , Rfl: Allergies Review of patient's allergies indicates: Allergen Reactions Seasonal Eyes Water & Itch, Runny Nose and Sneezing Past Medical History Past Medical History: Diagnosis Date ??? Anxiety ??? Bradycardia ??? Diabetes mellitus ([facility]) type 2 ??? Hypercholesteremia ??? Sinus node dysfunction ([facility]) 03/05/2024 ??? Thyroid nodule Past Surgical History No past surgical history on file. Social History Social History Tobacco Use ??? Smoking status: Every Day ??? Smokeless tobacco: Never Substance Use Topics ??? Alcohol use: Not Currently ??? Drug use: Yes Types: Marijuana Family History Family History Problem Relation Name Age of Onset ??? Stent Cardiac Father ??? Stroke Sister ??? Heart Attack Paternal Grandfather No family history of arrhythmias Review of Systems Review of Systems Constitutional: Negative for malaise/fatigue. HENT: Negative for ear discharge and nosebleeds. Eyes: Negative for blurred vision and double vision. Respiratory: Negative for cough and shortness of breath. Cardiovascular: Negative for chest pain, palpitations, orthopnea, leg swelling and PND. Gastrointestinal: Negative for blood in stool and melena. Genitourinary: Negative for dysuria and hematuria. Musculoskeletal: Negative for joint pain and myalgias. Skin: Negative for itching and rash. Neurological: Negative for dizziness, loss of consciousness and weakness. Endo/Heme/Allergies: Negative for polydipsia. Does not bruise/bleed easily. Psychiatric/Behavioral: Negative for depression. The patient is not nervous/anxious. Physical Examination There were no vitals filed for this visit. Physical Exam Vitals reviewed. Constitutional: General: She is not in acute distress. Appearance: She is not ill-appearing. HENT: Head: Normocephalic and atraumatic. Right Ear: External ear normal. Left Ear: External ear normal. Nose: Nose normal. Mouth/Throat: Mouth: Mucous membranes are moist. Pharynx: Oropharynx is clear. Eyes: General: No scleral icterus. Extraocular Movements: Extraocular movements intact. Conjunctiva/sclera: Conjunctivae normal. Cardiovascular: Rate and Rhythm: Normal rate and regular rhythm. Heart sounds: Normal heart sounds. No murmur heard. Pulmonary: Effort: Pulmonary effort is normal. Breath sounds: Normal breath sounds. No wheezing. Abdominal: General: There is no distension. Palpations: Abdomen is soft. Tenderness: There is no abdominal tenderness. Musculoskeletal: General: No swelling. Normal range of motion. Cervical back: Normal range of motion and neck supple. Right lower leg: No edema. Left lower leg: No edema. Skin: General: Skin is warm and dry. Findings: No rash. Neurological: General: No focal deficit present. Mental Status: She is alert and oriented to person, place, and time. Motor: No weakness. Psychiatric: Behavior: Behavior normal. Thought Content: Thought content normal. Judgment: Judgment normal. EQUIN MOLD MAKER documented in this encounter Plan of Treatment Upcoming Encounters Date Type Department Care Team (Late st Contact Info) Description 09/03/2024 8:45 AM CDT Office Visit [facility] [address] [place] [address] Melissa Jj MD [address] [place] [address] 09/25/2024 1:15 AM CDT Allied Health/Nurse Visit [facility] [address] [place] [address] Christiano Lobato MD [address] [place] [address] Pending Results Name Type Priority Associated Diagnoses Date /Time ELECTROCARDIOGRAM EKG-NonRad Routine Pacemaker Bradycardia Sinus node dysfunction ([facility]) 06/26/2024 10:07 AM MANNEQUIN MOLD MAKER documented as of this encounter Procedures Procedure Name Priority Date/Time Associated Diagnosis Comments ELECTROCARDIOGRAM (NON [place] ACQUIRED) Routine 06/26/2024 10:07 AM MANNEQUIN MOLD MAKER Pacemaker Bradycardia Sinus node dysfunction ([facility]) Procedure Note - 06/26/2024 10:07 AM CSTThis note is in progress. [facility] [address] [place] [address] Test Date: 2024-06-26 Pat Name: JAYCEE ESPINOSA Department: 105 Room: Gender: Female Tso: abiodun : 1955 Requested By: CHRISTIANO LOBATO Order Number: [id number] Reading MD: CHRISTIANO LOBATO Measurements Intervals [place] Rate: 63 P: 161 MI: 183 QRS: -16 QRSD: 98 T: 45 QT: 386 QTc: 398 Interpretive Statements ELECTRONIC ATRIAL PACEMAKER ABNORMAL RHYTHM ECG documented in this encounter Visit Diagnoses Diagnosis Sinus node dysfunction ([facility])- Primary Sinoatrial node dysfunction Bradycardia Other specified cardiac dysrhythmias Pacemaker Cardiac pacemaker in situ documented in this encounter Care Teams Gm Mobile Relationship Specialty Start Date End Date Jeane Archuleta APNP [address] [facility] [place] [address] PCP - General 02/10/23 Melissa Jj MD [address] [place] [address] Consulting Physician CARDIOVASCULAR DISEASE 02/22/23 Christiano Lobato MD [address] [place] [address] Consulting Physician CLINICAL CARDIAC ELECTROPHYSIOLOGY 04/03/24 Belgica Hernandez PA-C [address] [place] [address] Referring Physician PHYSICIAN VIDEO PHOTOGRAPHER 04/03/24 documented as of this encounter
--- OUTSIDE RECORDS SUMMARY | 2024-06-27 13:56 | XMS_ITS ---
Author Organization [facility] Address [address] [place] [address] Phone Care Team Providers Care Industrial Machine System Technician Name Role Phone JESSICA ANTON, NATA BURCIAGA MD, SCOTT Primary Care Provider [phone] Plan of Treatment Referrals To [facility] - [address] [place] [address] - Sacroiliitis, not elsewhere classified Note: consent for bilateral SI joint injections Last Documented On 9 7:07AM ; [facility] Assessments Includes: Assessments for all patient encounters Findings Encounter Date Chronic pain syndrome PAIN MANAGEMENT FO LLOW UP with ARMAAN L CHARLEEN [facility] 11/22/2018 Last Documented On 9 1:27PM ; [facility] Fibromyalgia PAIN MANAGEMENT FOLLOW UP with T ROXANNE L CHARLEEN [facility] 11/22/2018 Last Documented On 9 1:27PM ; [facility] Lumbar radiculopathy PAIN MANAGEMENT FOL LOW UP with ARMAAN L CHARLEEN [facility] 11/22/2018 Last Documented On 9 1:27PM ; [facility] Myalgia PAIN MANAGEMENT FOLLOW UP with T ROXANNE L CHARLEEN [facility] 11/22/2018 Last Documented On 9 1:27PM ; [facility] Sacroiliitis PAIN MANAGEMENT FOLLOW UP with T ROXANNE L CHARLEEN [facility] 11/22/2018 Last Documented On 9 1:27PM ; [facility] Chronic pain syndrome CHECK UP with ARMAAN L BLE VINS [facility] 10/30/2018 Last Documented On 9 1:56PM ; [facility] Fibromyalgia CHECK UP with ARMAAN L CHARLEEN [facility] 10/30/2018 Last Documented On 9 1:56PM ; [facility] Lumbar radiculopathy CHECK UP with ARMAAN L BLEV INS [facility]P-[facility] 10/30/2018 Last Documented On 9 1:56PM ; [facility] Myalgia CHECK UP with ARMAAN L CHARLEEN [facility] 10/30/2018 Last Documented On 9 1:56PM ; [facility] Sacroiliitis CHECK UP with ARMAAN L CHARLEEN [facility] 10/30/2018 Last Documented On 9 1:56PM ; [facility] Chronic pain syndrome PAIN MANAGEMENT FO LLOW UP with ARMAAN L CHARLEEN ANP-[facility] 10/04/2018 Last Documented On 9 1:21PM ; [facility] Fibromyalgia PAIN MANAGEMENT FOLLOW UP with T ROXANNE L CHARLEEN ANP-BC 10/04/2018 Last Documented On 9 1:21PM ; [facility] Lumbar radiculopathy PAIN MANAGEMENT FOL LOW UP with ARMAAN L CHARLEEN ANP-BC 10/04/2018 Last Documented On 9 1:21PM ; [facility] Myalgia PAIN MANAGEMENT FOLLOW UP with T ROXANNE L CHARLEEN ANP-BC 10/04/2018 Last Documented On 9 1:21PM ; [facility] Sacroiliitis PAIN MANAGEMENT FOLLOW UP with T ROXANNE L CHARLEEN ANP-BC 10/04/2018 Last Documented On 9 1:21PM ; [facility] Chronic pain syndrome PAIN MANAGEMENT NE W CONSULT with ARMAAN L CHARLEEN ANP-BC 09/04/2018 Last Documented On 9 4:37PM ; [facility] Fibromyalgia PAIN MANAGEMENT NEW CONSULT with ARMAAN L CHARLEEN ANP-BC 09/04/2018 Last Documented On 9 4:37PM ; [facility] Lumbar radiculopathy PAIN MANAGEMENT NEW CONSULT with ARMAAN L CHARLEEN ANP-BC 09/04/2018 Last Documented On 9 4:37PM ; [facility] Myalgia PAIN MANAGEMENT NEW CONSULT with ARMAAN MART 09/04/2018 Last Documented On 9 4:37PM ; [facility] Sacroiliitis PAIN MANAGEMENT NEW CONSULT with ARMAAN MART 09/04/2018 Last Documented On 9 4:37PM ; [facility] Medical Equipment - Implanted Devices Includes: Current and historical Devices No Medical Equipment Recorded Medications Includes: Current and historical Medications Current Medications (continue as prescribed) Lyrica 150 MG Oral Capsule 04/06/2019 Provider: Daysi KAHN Diagnosis: 1 CAPSULE TWO TIMES A DAY Last Documented On 9 12:13PM By [facility] Lyrica 150MG Oral Capsule 12/11/2018 Provider: ARMAAN MAJOR Diagnosis: Radiculopathy, l umbar region TAKE 1 CAPSULE BY MOUTH TWICE DAILY Last Documented On 9 10:15AM By ARMAAN KAHN ; [facility] Losartan Potassium-HCTZ 50-12.5MG Oral Tablet 08/23/19 19 Provider: Diagnosis: Last Documented On 08/22/2018 8:25AM By Aracelis LARA ; [facility] Nabumetone 750MG Oral Tablet 08/22/2018 Provider: Diagnosis: Last Documented On 08/22/2018 8:26AM By Aracelsi LARA ; [facility] Lasix 40MG Oral Tablet 08/22/2018 Provider: Diagnosis: Last Documented On 08/22/2018 8:26AM By Aracelis LARA ; [facility] Metoprolol Succinate ER 50MG Oral Tablet, extended-release 24 hour 08/22/2018 Provider: Diagnosis: Last Documented On 08/22/2018 8:24AM By Aracelis LARA ; [facility] [place] 10-325MG Oral Tablet 08/22/2018 Provider: Diagnosis: Last Documented On 08/22/2018 8:24AM By Aracelis LARA ; [facility] Cymbalta 30MG Oral Capsule, delayed-release particles 08/22/2018 Provider: Diagnosis: Last Documented On 08/22/2018 8:23AM By Aracelis LARA ; [facility] Crestor 20MG Oral Tablet 08/22/2018 Provider: Diagnosis: Last Documented On 08/22/2018 8:23AM By Aracelis LARA ; [facility] Ativan 0.5MG Oral Tablet 08/22/2018 Provider: Diagnosis: Last Documented On 08/22/2018 8:22AM By Aracelis LARA ; [facility] Past Medications on file Lyrica 150MG Oral Capsule 10/30/2018 - 12/11/2018 Provider: ARMAAN MART Diagnosis: Radiculopathy, l umbar region 1 CAPSULE TWO TIMES A DAY Last Documented On 9 10:10AM By ARMAAN MART ; [facility] Lyrica 75MG Oral Capsule 10/04/2018 - 10/30/2018 Provider: ARMAAN MART Diagnosis: Radiculopathy, l umbar region 1 CAPSULE TWO TIMES A DAY Last Documented On 9 1:44PM By ARMAAN MATR ; [facility] Lyrica 150MG Oral Capsule 10/04/2018 - 10/30/2018 Provider: ARMAAN MART Diagnosis: Radiculopathy, l umbar region 1 CAPSULE TWO TIMES A DAY Last Documented On 9 1:56PM By ARMAAN MART ; [facility] Medications Administered Includes: Administered Medications in patient's chart No Administered Medications Recorded Results Includes: Results from 06/27/2023 through 06/27/2024 No Results Recorded For Specified Dates History of Present Illness History of Present Illness not supported for this document type No History of Present Illness Recorded Social History Description Last Updated Smoking status : Current everyday smoker 10/30/2018 Last Documented On 9 1:56PM ; [facility] Cigarette smoking 10 pack(s)/day 019 Last Documented On 9 4:37PM ; [facility] 09/04/2018 Last Documented On 9 4:37PM ; [facility] No consumption of alcohol 09/04/2018 Last Documented On 9 4:37PM ; [facility] Not using drugs 09/04/2018 Last Documented On 9 4:37PM ; [facility] Smoking cigarettes per day 09/04/2018 Last Documented On 9 4:37PM ; [facility] Tobacco use 09/04/2018 Last Documented On 9 4:37PM ; [facility] Medical History Includes: Medical History in patient's chart No Medical History Recorded Family History Includes: Family History in patient's chart No Family History Recorded Review of Systems Review of Systems not supported for this document type No Review of Systems Recorded Mental Status No Mental Status Recorded Functional Status No Functional Status Recorded Physical Exam Physical Exam not supported for this document type No Physical Exam Recorded Allergies Includes: Active, inactive, and resolved Allergies No Known Allergies Insurance Includes: Active Insurance Policies Plan Name Member ID Group # Subscriber Relationship Effect cesar Dates 1 - [facility] [id number] DANK Chapa Clinical Notes Includes: Signed Clinical Notes starting from 06/04/2022 No Clinical Notes Recorded
--- OUTSIDE RECORDS SUMMARY | 2024-06-27 13:56 | XMS_ITS | Encounter Summary ---
Author Organization [facility] Address [address] [place] [address] Care Team Providers Care Cloth Checker Name Role Phone Jeane Archuleta CAMILLE Primary Care Provider + [phone] Melissa Jj MD Unavailable Christiano Quijano MD Unavailable [phone] Belgica Hernandez PA-C Unavailable [phone] Encounter Details Date Type Department Care Team (Late Contact Info) Description 06/26/2024 Orders Only [facility] [address] [place] [address] Christiano Quijano MD [address] [place] [address] Social History Tobacco Use Types Packs/Day Years Used Date Smoking Tobacco: Every Day Smokeless Tobacco: Never Alcohol Use Standard Drinks/Week Comments Not Currently 0 (1 standard drink = 0.6 oz pur e alcohol) Comments Unknown Sex and Gender Information Value Date Recorded Sex Assigned at Female 06/26/2024 9:45 AM FIBERGLASS LAMINATOR Legal Sex Female 10:24 PM CDT Gender Identity Female 08/05/2021 9:03 AM CDT Sexual Orientation Not on file documented as of this encounter Plan of Treatment Upcoming Encounters Date Type Department Care Team (Late Contact Info) Description 09/03/2024 8:45 AM CDT Office Visit [facility] [address] [place], [place] [id number] Melissa Jj MD [address] [place] [address] 09/25/2024 1:15 AM CDT Allied Health/Nurse Visit [facility] [address] [place] [address] Christiano Quijano MD [address] [place] [address] Pending Results Name Type Priority Associated Diagnoses Date /Time ELECTROCARDIOGRAM EKG-NonRad Routine Pacemaker Bradycardia Sinus node dysfunction ([facility]) 06/26/2024 10:07 AM FIBERGLASS LAMINATOR documented as of this encounter Visit Diagnoses Diagnosis Pacemaker- Primary Cardiac pacemaker in situ Bradycardia Other specified cardiac dysrhythmias Sinus node dysfunction ([facility]) Sinoatrial node dysfunction documented in this encounter Care Teams Cloth Checker Relationship Specialty Start Date End Date Jeane Archuleta APNP [address] [place] [address] [place] [address] PCP - General 02/10/23 Melissa Jj MD [address] [place] [address] Consulting Physician CARDIOVASCULAR DISEASE 02/22/23 Christiano Quijano MD [address] [place] [address] Consulting Physician CLINICAL CARDIAC ELECTROPHYSIOLOGY 04/03/24 Belgica Hernandez PA-C [address] [place] [address] Referring Physician PHYSICIAN PRODUCTION REPRODUCTION MANAGER 04/03/24 documented as of this encounter
== END 2024-06-27 13:49 | disposition home or self-care (01) ==
PROVIDERS: Visit Provider Nurse Practitioner Family
DX: Z12.31 Encounter for screening mammogram for malignant neoplasm of breast (principal)
CPT/HCPCS: 77063; 77067

== ENCOUNTER 2024-09-06 11:50 | Outpatient (CLI) | payer MEDICARE, SELFPAY ==
--- NOTE | ~2024-09-06 | DEXA_ITS ---
Bone Density Report Name: DANK ALEXIS Age: 69 Sex: Female Ethnicity: White Date of : 1955 Indication: postmenopausal; screening for osteoporosis; hysterectomy; Referring Provider: UNKNOWN, UNKNOWN Study: Bone densitometry was performed. Exam Date: September 06, 2024 Accession number: [id number] Bone Density: Region BMD T-score Z-score Classification AP Spine(L1-L4) 1.446 3.6 5.6 Normal Femoral Neck (Left) 0.741 -1.0 0.7 Normal Total Hip (Left) 1.067 1.0 2.4 Normal Femoral Neck (Right) 0.804 -0.4 1.3 Normal Total Hip (Right) 1.066 1.0 2.4 Normal Femoral Neck Mean 0.773 -0.7 1.0 Normal Total Hip Mean 1.066 1.0 2.4 Normal World Health Organization criteria for BMD impression classify patients as: Normal (T-score at or above -1.0), Osteopenia (T-score between -1.0 and -2.5), or Osteoporosis (T-score at or below -2.5). Clinical Information Provided by Patient: Smokes Has used the following medications: Vitamin D Has the following medical conditions: Hysterectomy Patient maximum height was 63 Menopause Age: 43 No regular weight bearing exercise Does not regularly consume dairy products Drinks caffeinated beverages Onset of menses at age 14 Number of children 2 Impression: The patient has normal bone mass. The patient has risk factors, including: smoking. Discussion: BONE DENSITY IS ABOVE THE MINIMUM DESIRABLE LEVEL AT ALL SKELETAL SITES TESTED. This patient?s bone mineral density is above the minimum desirable level (T-score -1.0 or better) at all sites measured. The patient should follow a healthful lifestyle (good nutrition with adequate calcium and vitamin D, and appropriate weight-bearing exercise). Follow-Up: Consider repeating this study in 5 years or sooner if there is some new clinical indication. Reported by: ALEJANDRA on 09/06/2024 12:14:00 PM. Reviewed, dictated and finalized at location A.
--- OUTSIDE RECORDS SUMMARY | 2024-09-06 13:14 | XMS_ITS ---
Care Plan - [facility] Created on: September 06, 2024 DANK ALEXIS : [id number] Sex: Female Author Organization [facility] Address [address] [place] [address] Phone Care Team Providers Care Sister Superior Name Role Phone JESSICA ANTON, NATA BURCIAGA MD, SCOTT Primary Care Provider [phone]
--- OUTSIDE RECORDS SUMMARY | 2024-09-06 13:14 | XMS_ITS | Encounter Summary ---
Author Organization [facility] Address [address] [place] [address] Care Team Providers Care Property And Equipment Clerk Name Role Phone Jeane Archuletashell OBRIEN Primary Care Provider [phone] Melissa Jj MD Unavailable Christiano Quijano MD Unavailable + [phone] Belgica Hernandez PA-C Unavailable + [phone] Susy Cho MD Primary Care Provider + [phone] Encounter Details Date Type Department Care Team (Late Contact Info) Description 03/13/2024 [facility] Message Enc [facility] [address]eld [address] [place] [address] [facility] Provider Echo results Social History Tobacco Use Types Packs/Day Years Used Date Smoking Tobacco: Every Day Smokeless Tobacco: Never Alcohol Use Standard Drinks/Week Comments Not Currently 0 (1 standard drink = 0.6 oz pur e alcohol) Comments Unknown Sex and Gender Information Value Date Recorded Sex Assigned at Female 06/26/2024 9:45 AM BEADING SAWYER Legal Sex Female 10:24 PM CDT Gender Identity Female 08/05/2021 9:03 AM CDT Sexual Orientation Not on file documented as of this encounter Plan of Treatment Upcoming Encounters Date Type Department Care Team (Late Contact Info) Description 09/07/2024 1:30 PM CDT Office Visit [facility] [address] [place] [address] Melissa Jj MD [address] [place], [place] [address] 09/25/2024 1:15 AM CDT Allied Health/Nurse Visit [facility] [address] [place] [address] Christiano Quijano MD [address] [place], [place] [address] documented as of this encounter Visit Diagnoses Not on filedocumented in this encounter Care Teams Property And Equipment Clerk Relationship Specialty Start Date End Date Jeane Archuleta APNP [address] [place] [address] PCP - General 02/10/23 09/03/24 Susy Cho MD [address] [place] [address] PCP - General 09/04/24 Melissa Jj MD [address] [place], [place] [address] Consulting Physician CARDIOVASCULAR DISEASE 02/22/23 Christiano Quijano MD [address] [place], [place] [address] Consulting Physician CLINICAL CARDIAC ELECTROPHYSIOLOGY 04/03/24 Belgica Hernandez PA-C [address] [place], [place] [address] Referring Physician PHYSICIAN SPUD DRILLER 04/03/24 documented as of this encounter
--- OUTSIDE RECORDS SUMMARY | 2024-09-06 13:14 | XMS_ITS | Encounter Summary ---
Author Organization [facility] Address [address] [place] [address] Care Team Providers Care Supervisor Hardboard Name Role Phone Jeane Archuletashell OBRIEN Primary Care Provider [phone] Melissa Jj MD Unavailable Christiano Quijano MD Unavailable + [phone] Belgica Hernandez PA-C Unavailable + [phone] Susy Cho MD Primary Care Provider + [phone] Encounter Details Date Type Department Care Team (Late Contact Info) Description 03/22/2023 [facility] Message Enc [facility] [address] [place] [address] [facility] Provider echo Social History Tobacco Use Types Packs/Day Years Used Date Smoking Tobacco: Every Day Smokeless Tobacco: Never Alcohol Use Standard Drinks/Week Comments Not Currently 0 (1 standard drink = 0.6 oz pur e alcohol) Comments Unknown Sex and Gender Information Value Date Recorded Sex Assigned at Female 06/26/2024 9:45 AM 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 Legal Sex Female 10:24 PM CDT Gender Identity Female 08/05/2021 9:03 AM CDT Sexual Orientation Not on file documented as of this encounter Plan of Treatment Upcoming Encounters Date Type Department Care Team (Late Contact Info) Description 09/07/2024 1:30 PM CDT Office Visit [facility] [address] [place] [address] Melissa Jj MD [address] [place], [place] [address] 09/25/2024 1:15 AM CDT Allied Health/Nurse Visit [facility] [address] [place] [address] Christiano Quijano MD [address] [place], [place] [address] documented as of this encounter Visit Diagnoses Not on filedocumented in this encounter Care Teams Supervisor Hardboard Relationship Specialty Start Date End Date Jeane Archuleta APNP [address] [place] [address] PCP - General 02/10/23 09/03/24 [place] [address] [place] [address] PCP - General 09/04/24 Melissa Jj MD [address] [place], [place] [address] Consulting Physician CARDIOVASCULAR DISEASE 02/22/23 Christiano Quijano MD [address] [place] [address] Consulting Physician CLINICAL CARDIAC ELECTROPHYSIOLOGY 04/03/24 Belgica Hernandez PA-C [address] [place], [place] [address] Referring Physician PHYSICIAN MARKETING RECRUITER 04/03/24 documented as of this encounter
--- OUTSIDE RECORDS SUMMARY | 2024-09-06 13:14 | XMS_ITS | Clinical Summary ---
Author Organization [facility] Address [address] [place] [address] Phone Care Team Providers Care Adobe Developer Name Role Phone JESSICA ANTON, NATA BURCIAGA MD, SCOTT Primary Care Provider [phone] Reason for Visit and Chief Complaint The Chief Complaint is: Pt here today for 2wk f/u injection. The first week after the injection shehad 80% relief. She feels it has maintained the 80% Plan of Treatment No Plan of Treatment Recorded Assessments Includes: Assessments from this encounter Findings - Sacroiliitis [M46.1 - Sacroiliitis, not elsewhere classified] - Last Documented On 11/22/2018 1:27PM ; [facility] - Lumbar radiculopathy [M54.16 - Radiculopathy, lumbar region] - Last Documented On 11/22/2018 1:27PM ; [facility] - Fibromyalgia [M79.7 - Fibromyalgia] - Last Documented On 11/22/2018 1:27PM ; [facility] - Myalgia [M79.18 - Myalgia, other site] - Last Documented On 11/22/2018 1:27PM ; [facility] - Chronic pain syndrome [G89.4 - Chronic pain syndrome] - Last Documented On 11/22/2018 1:27PM ; [facility] Medical Equipment - Implanted Devices Includes: Current Devices No Medical Equipment Recorded Medications Includes: Medications discussed during this encounter and other current Medications Current Medications (continue as prescribed) Lyrica 150 MG Oral Capsule 04/06/2019 Provider: Daysi MART Diagnosis: 1 CAPSULE TWO TIMES A DAY Last Documented On 9 12:13PM By ARMAAN MART ; [facility] Lyrica 150MG Oral Capsule 12/11/2018 Provider: ARMAAN VILLASEÑOR [facility] Diagnosis: Radiculopathy, l umbar region TAKE 1 CAPSULE BY MOUTH TWICE DAILY Last Documented On 9 10:15AM By ARMAAN VILLASEÑOR [facility] ; [facility] Losartan Potassium-HCTZ 50-12.5MG Oral Tablet 08/23/19 19 Provider: Diagnosis: Last Documented On 08/22/2018 8:25AM By Aracelis LARA ; [facility] Nabumetone 750MG Oral Tablet 08/22/2018 Provider: Diagnosis: Last Documented On 08/22/2018 8:26AM By Aracelis LARA ; [facility] Lasix 40MG Oral Tablet 08/22/2018 Provider: Diagnosis: Last Documented On 08/22/2018 8:26AM By Aracelis LARA ; [facility] Metoprolol Succinate ER 50MG Oral Tablet, extended-release 24 hour 08/22/2018 Provider: Diagnosis: Last Documented On 08/22/2018 8:24AM By Aracelis LARA ; [facility] [place] 10-325MG Oral Tablet 08/22/2018 Provider: Diagnosis: Last Documented On 08/22/2018 8:24AM By Aracelis LARA ; [facility] Cymbalta 30MG Oral Capsule, delayed-release particles 08/22/2018 Provider: Diagnosis: Last Documented On 08/22/2018 8:23AM By Aracelis LARA ; [facility] Crestor 20MG Oral Tablet 08/22/2018 Provider: Diagnosis: Last Documented On 08/22/2018 8:23AM By Aracelis LARA ; [facility] Ativan 0.5MG Oral Tablet 08/22/2018 Provider: Diagnosis: Last Documented On 08/22/2018 8:22AM By Aracelis LARA ; [facility] Medications Administered Includes: Administered [...] 2 Last Documented: On 11/22/2018 1:07PM ; [facility] Results Includes: Results discussed during [...] 10/30/2018 Last Documented On 9 1:01PM ; [facility] Cigarette smoking 10 pack(s)/day 019 Last Documented On 9 1:01PM ; [facility] 09/04/2018 Last Documented On 9 1:01PM ; [facility] No consumption of alcohol 09/04/2018 Last Documented On 9 1:01PM ; [facility] Not using drugs 09/04/2018 Last Documented On 9 1:01PM ; [facility] Smoking cigarettes per day 09/04/2018 Last Documented On 9 1:01PM ; [facility] Tobacco use 09/04/2018 Last Documented On 9 1:01PM ; [facility] Medical History Includes: Medical History addressed during [...] Diagnosis PAIN MANAGEMENT FOLLOW UP ARMAAN VILLASEÑOR [facility] 11/23/19 19 12:56PM 1:30PM Chronic Pain Syndrome,Sacr oiliitis,Lumb ar Radiculopathy ,Fibromyalgia ,Myalgia Insurance Includes: Active Insurance Policies Plan Name Member ID Group # Subscriber Relationship Effect cesar Dates 1 - [facility] [id number] DANK ALEXIS Self Clinical Notes Includes: Clinical Notes from this encounter No Clinical Notes Recorded
--- OUTSIDE RECORDS SUMMARY | 2024-09-06 13:14 | XMS_ITS | Data Portability ---
Author Organization [facility], [address] [place] [address] ([place]) Address [address] [place] [address] Care Team Providers Care Sander Portable Machine Name Role Phone JOSEFINA GUTIERREZ Primary Care Provider [phone] CLINT MELLO Primary Care Provider HECTOR CARDOZA Referring Provider [phone] CHI GARNER Primary Care Provider Assessment Encounter Date Assessment Date Assessment [...] on this date of service including both yxda-wp-qjqk and sgb-ddot-th-face time excluding any separately reportable services. nv Not available 10/28/2023 15:22:28 11/08/2023 11/08/2023 Thank you, Dr. Baum, for the opportunity to see your patient in consultation. S UBJECTIVE: Jaycee is a 68-year-old, right-hand dominant, female who is here for evaluation of right ring finger pain with triggering and pain in the right thumb. 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 she lives at home with her family in [place], [place]. She uses tobacco. She has a [...] performed into the right ring finger A1 adnrew. The injected material was a mixture of [...] if they have any questions or concerns. [facility] [email or web address] Not available 11/09/2023 11:37:58 12/02/2023 12/02/2023 SUBJECTIVE: Jaycee is a 68-year-old right-hand dominant female who is here for evaluation of right ring finger pain with triggering and pain in the right thumb. 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 she lives at home with her family in [place], [place]. She uses tobacco. She has a [...] if she has any questions or concerns. eb ebeeton Not available 12/03/2023 12:39:02 02/09/2024 02/09/2024 IMPRESSION: 1. FMS. 2. Osteoarthritis. 3. 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 PLAN: 1. Continue current pregabalin and meloxicam therapy. 2. NSAID labs in 4 months as ordered. 3. Encouraged patient to keep active with 1 hour or more of weightbearing activity daily. 4. Followup visit in 6 months. alyssa Not available 02/09/2024 20:58:46 07/12/2024 07/12/2024 IMPRESSION: 1. Acute flare of bilateral elbow lateral epicondylitis. 2. Fibromyalgia syndrome. 3. Osteoarthritis. 4. Chronic mechanical lower back pain. PLAN: 1. NSAID labs on August 14, 2024. 2. Refill and continue current pregabalin dosing. 3. Continue current meloxicam low dose therapy. 4. Bilateral elbow lateral epicondylar cortisone injections today. The indications, risks, benefits [...] spray is used to anesthetize the skin while in each instance, a 25 gauge needle attached to a syringe containing 40 mg of Depo Medrol and 0.5 cc of 1% lidocaine is introduced into the lateral epicondyle site of each elbow and the contents are injected. Subsequently, the needle is withdrawn and the areas cleaned and covered with a sterile bandage. There is no blood loss or complications. The patient tolerated the procedure well and is discharged home in stable condition. I performed this procedure today myself with the assistance of my nursing staff. 5. Followup visit in 4-6 months. alyssa Not available 07/12/2024 15:19:30 Plan of Treatment Reminders Order Date Submit Date Provider Last Modified By Organization Details Last Modified Time Details Appointments Establish ed Patient 15.EST 2024 10:30A M Dr. Hector Cardoza Not available Not available Not available Lab None recorded. Referral None recorded. Procedures None recorded. Surgeries None recorded. Imaging None recorded. Medication Orders Depo-Medr ol 80 mg/mL suspensio n for injection 2024 025 [facility] #[id number], [address], [place], [id number], 07/12/2024 17:19:17 Depo-Medr ol 80 mg/mL suspensio n for injection [address] [facility] #[id number], [address], [place], [id number], 07/12/2024 17:19:17 Depo-Medr ol 80 mg/mL suspensio n for injection [address] [facility] #[id number], [address], [place], [id number], 10/26/2023 14:12:35 Depo-Medr ol 80 mg/mL suspensio n for injection [address] [facility] #[id number], [address], [place], [id number], 10/26/2023 14:12:35 Patient TargetsNo targets recorded. Patient InstructionsNo instructions recorded. Reason for Referral None Reported. Results Created Date Observation Date Name Description Value Unit Range Abnormal Flag Note LastModifiedBy Organization Detail LastModifiedTime 12/02/19 24 12/02/2023 XR, finge r(s) [address] [address] Teleph tlu Name: Jaycee Espinosa [id number] am Date: 2023 Age: 68Phys ician: MD Marialuisa, Shauna n : 1954Ex aminat ion: XR FINGER S [...] 3:30 PM cc: Page PAGE 1 of [facility] 1 [email or web address] [facility] [address] [facility], [place], [address], 12/03/2023 18:12:21 Result Notes None recorded. Problems Name Problem SNOMED Code Status Onset Date Resolution Date Notes Provider Name and Address Organization Details Recorded Time Degenerativ e joint disease involving multiple joints 656377069 Active 2024 Hector Cardoza MD [address] [facility], [place], [address], [facility] 5 11:22:37 Mechanical low back pain 374169753 Active 2024 Hector Cardoza MD [address] [facility], [place], [address], [facility] 5 11:22:53 Fibromyalgi a 764755545 Active 2023 Hector Cardoza MD [address] [facility], [place], [address], [facility] 5 11:22:27 Osteoarthri tis 857111738 Active 2023 Jo thompson, [facility] 4 12:14:48 Degeneratio n of lumbar interverteb ral disc 48435731 [facility] 12:15[facility]00 Lateral epicondylit is of bilateral humerus 9557615342776 9108 Active 2023 Hector Cardoza MD [address] [facility], [place], [address], [facility] 5 11:22:21 Osteoarthro sis of the carpometaca rpal joint of the thumb 34995243 Active 2023 Hector Cardoza MD [address] [place], [address], [facility] 4 12:43:59 Acquired trigger finger of right ring finger 1247505078513 08 Active 2023 Hector Cardoza MD [address] [place] [address], [address], [facility] 4 12:44:10 Osteoarthri tis of first carpometaca rpal joint of right hand 1843441559394 01 Active 2023 Augustina Elam MD [address] [place] [address], [address], [facility] 4 21:02:19 Nicotine dependence 65887733 Active 2023 Marie Mcelroy [facility] 4 19:12:50 Pain in right hand 6177442774926 09 Active 2023 Mike Alfonso [facility] 4 10:04:29 Problem Notes None recorded. Procedures [...] LastModified Time 12/02/2023 XR, finger(s) completed [email or web address] [facility] [address] [place] [address], [address], 12/03/2023 18:12:21 Procedure Notes None recorded. Medical [...] injection Take 40 mg by injection route. 2024 active Not Available Not Available Not Avai [...] tablet twice a day by oral route. 07/12 completed Not Available Not Available Not Available buspirone 7.5 mg tablet TAKE 1 [...] TAKE 1 TABLET BY MOUTH TWICE DAILY active Not Available Not Available No t Available rosuvastati n 20 mg tablet TAKE 1 TABLET BY MOUTH EVERY DAY active Not Available Not Available No t Available pregabalin 150 mg capsule TAKE 2 CAPSULES BY MOUTH TWICE DAILY 10/25 completed Not Available Not Available Not Available pregabalin 200 mg capsule Take 1 capsule 3 times a day by oral route. 2024 active Not Available Not Available Not Avai [...] Updated DateTime 4 157.48 cm 36.4 kg/m2 86372.8 8 g 46 /min 98 % 98 % 5 130 mm[Hg] 82 mm[Hg] Jo Elias [facility] 4 12:13:50 Date Recorded Body height Pain severity - 0-10 verbal numeric rating [Score] - Reported Provider Name and Address Organization Details Last Updated DateTime 11/08/2023 157.48 cm 3 Brandy Goldstein [facility] 11/08/2023 10:07:30 Date Recorded Body height Pain severity - 0-10 verbal numeric rating [Score] - Reported Provider Name and Address Organization Details Last Updated DateTime 12/02/2023 157.48 cm 4 Brandy Goldstein [facility] 12/02/2023 16:14:38 Date Recorded Body height Body mass index (BMI) Body weight Heart rate Oxygen saturation Oxygen saturation in Arterial blood by Pulse oximetry Pain severity - 0-10 verbal numeric rating [Score] - Reported Systolic blood pressure Diastolic blood pressure Provider Name and Address Organization Details Last Updated DateTime 4 157.48 cm 37.8 kg/m2 94587.4 7 g 48 /min 96 % 96 % 2 124 mm[Hg] 62 mm[Hg] Leatha Frymerica [facility] 4 14:28:18 Date Recorded Body height Body mass index (BMI) Body weight Heart rate Oxygen saturation Oxygen saturation in Arterial blood by Pulse oximetry Systolic blood pressure Diastolic blood pressure Provider Name and Address Organization Details Last Updated DateTime 5 157.48 cm 38.1 kg/m2 91303.6 5 g 98 /min 96 % 96 % 144 mm[Hg] 86 mm[Hg] Pierce Ortiz [facility] 5 10:52:36 Social History Question Answer Notes LastModified by Organizat ion Details LastModified Time Tobacco Smoking Status Current Every Day Smoker Leatha Edmondsleodan [facility] 02/09/2024 14:29:24 Do You Have An Advance Directive? No [email or web address] Information not available 11/25/2023 What Is Your Level Of Alcohol Consumption? None [email or web address] Information not available 11/25/2023 What Is Your Level Of Caffeine Consumption? Heavy [email or web address] Information not available 11/25/2023 Are You Currently Employed? 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 No [email or web address] Information not available 11/25/2023 What [...] available 2023 10:25:46 Medical History Condition Response High Blood Pressure N COPD N Depression N Anxiety Disorder Y Arthritis Y Cancer N Stroke N Fibromyalgia Y Kidney Disease N Attention-deficit Hyperactivity Disorder N Thyroid Problems Y Anemia N Diabetes Y Bleeding Disorder N Hyperlipidemia N Asthma N Seizures N Heart Disease N Osteoporosis N Gynecological HistoryNo gynecological history recorded. Obstetrics History GPAL:G 0 P 0 0 0 0 Immunizations Vaccine Type Date Status Note Provider Nam e and Address Organization Details Recorded Time Influenza, MDCK, quadrivalent, PF 2 completed Jo Elias [facility] 10/26/2023 12:14:04 zoster recombinant 1 completed Jo Elias [facility] 10/26/2023 12:14:04 zoster recombinant 0 completed Jo Elias [facility] 10/26/2023 12:14:04 Influenza, adjuvanted, quadrivalent, PF 3 completed Jo Elias [facility] 10/26/2023 12:14:04 COVID-19, mRNA, LNP-S, PF, 30 mcg/0.3 mL dose 1 completed Jo Elias [facility] 10/26/2023 12:14:04 COVID-19, mRNA, LNP-S, PF, 30 mcg/0.3 mL dose 1 completed Jo Elias [facility] 10/26/2023 12:14:04 COVID-19, mRNA, LNP-S, PF, 30 mcg/0.3 mL dose 1 completed Jo Curt [facility] 10/26/2023 12:14:04 COVID-19, mRNA, LNP-S, PF, 30 mcg/0.3 mL dose, atul-sucrose 2 completed Jo Curt [facility] 10/26/2023 12:14:04 COVID-19, mRNA, LNP-S, bivalent, PF, 30 mcg/0.3 mL dose 2 completed Jo Curt [facility] 10/26/2023 12:14:04 COVID-19, mRNA, LNP-S, PF, atul-sucrose, 30 mcg/0.3 mL 3 completed Jo Curt [facility] 10/26/2023 12:14:04 Tdap 0 completed Jo Curt [facility] 10/26/2023 12:14:04 Influenza, split virus, trivalent, preservative 1 completed Jo Curt [facility] 10/26/2023 12:14:04 Influenza, split virus, quadrivalent, PF 0 completed Jo Curt [facility] 10/26/2023 12:14:04 Influenza, split virus, quadrivalent, PF 8 completed Jo Curt [facility] 10/26/2023 12:14:05 Past Encounters Encounter ID Performer Location Encounter Start Date Encounter Closed Date Diagnosis/Indication Diagnosis SNOMED-CT Code Diagnosis ICD10 Code Diagnosis Note [id number] Hector Cardoza MD [address] [facility] ([place]) [address] [place] [address],[address] [place] [address] 10/26/2023 11:25:41 10/26/2023 18:17:31 Lateral epicondylitis of bilateral humerus 8411212502 9624448 M77.11 M77.12 Osteoarthr osis of the carpometacarpal joint of the thumb 99968583 M18.9 Acquired t food mixer finger of right ring finger 3527441993 03747 M65.341 Fibromyalgia 161059848 M 79.7 [id number] Augustina Elam MD [address] [facility] ([place]) [address] [place] [address] 11/08/2023 09:42:01 11/08/2023 10:48:42 Acquired trigger finger of right ring finger 8164192455 16559 M65.341 Osteoarthr itis of first carpometacarpal joint of right hand 6939383631 13602 M18.11 Nicotine dependence 5629 4008 F17.225 [id number] Augustina Elam MD [address] [facility] ([place]) [address] [place] [address] 12/02/2023 15:30:10 12/02/2023 18:34:43 Osteoarthritis of first carpometacarpal joint of right hand 8013837969 40200 M18.11 Acquired t food mixer finger of right ring finger 8615919871 66133 M65.341 Nicotine dependence 5629 4008 F17.602 [id number] Hector Cardoza MD [facility] ([place]) [address] [facility] [place] [address] 02/09/2024 14:19:02 02/11/2024 06:03:20 Fibromyalgia 552140040 M79.7 Osteoarthritis 532212332 M15.0 Additional diagnosis detail: Primary generalize d (osteo)art hritis Mechanical low back pain 393831318 M54.59 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 current use of non-steroidal anti-inflammatory drug 5741729072 30022 Z79.1 Additional diagnosis detail: 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 (current) use of non-steroi ivette anti-infla mmatories (nsaid) [id number] Hector Cardoza MD [facility] ([place]) [address] [place] [address] 07/12/2024 10:48:45 07/13/2024 10:58:41 Lateral epicondylitis of bilateral humerus 8739455273 7426127 M77.11 M77.12 Fibromyalgia 293128380 M 79.7 Degenerati ve joint disease involving multiple joints 781690668 M15.9 Mechanical low back pain 989676409 M54.59 Health Concerns Section Related Observation LastModified by Organization Detai ls LastModified Time None Recorded Concern Status LastModified by Organization Details LastModified Time None Recorded Advance Directives Directive N: Payers Encounter Date Sequence Insurance Name Policy Number Policy Correia Covered Member ID Correia Member ID Guarantor Name 10/26/2023 1 [place] Jaycee Espinosa [id number] Jaycee Espinosa 10/26/2023 2 [employer] OPTIONS (MEDICARE SUPPLEMENT) PLAN G Jaycee Espinosa [id number] Jaycee Espinosa 11/08/2023 1 [place] Jaycee Espinosa [id number] Jaycee Espinosa 11/08/2023 2 [employer] HE[employer] OPTIONS (MEDICARE SUPPLEMENT) PLAN G Jaycee Espinosa [id number] Jaycee Espinosa 12/02/2023 1 [place] Jaycee Espinosa [id number] Jaycee Espinosa 12/02/2023 2 [employer] HE[employer] OPTIONS (MEDICARE SUPPLEMENT) PLAN G Jaycee Espinosa [id number] Jaycee Espinosa 02/09/2024 1 [place] Jaycee Espinosa [id number] Jaycee Espinosa 02/09/2024 2 [employer] HE[employer] OPTIONS (MEDICARE SUPPLEMENT) PLAN G Jaycee Espinosa [id number] Jaycee Espinosa 07/12/2024 1 [place] Jaycee Espinosa [id number] Jaycee Espinosa 07/12/2024 2 [employer] HE[employer] OPTIONS (MEDICARE SUPPLEMENT) PLAN G Jaycee Espinosa [id number] Jaycee Espinosa Notes Date Note Type Note Provider Name and Address Organization Details Recorded Time text/html The patient is a 68-year-old female [...] pleurisy, shortness of breath, chest pain or palpitations.skye Jaycee Fox a 68 year oldfemalepresenting for care. Hector Cardoza MD [address] [place] [address], [phone], [facility] 11/03/2023 18:40:34 4 text/html Room Number: 7Reason [...] Endo:Negative Hem:Negative Augustina Elam MD [address] [place] [address], [phone], [facility] 11/13/2023 19:31:48 4 text/html Room Number: 1063Reason for visit: R thumbDominant Hand: rightDate of injury: NKIHow injury occurred: NKIPain Scale: 4/10Symptoms: TIGHTNESSDescription of pain: ACHING - CONSTANTPain wakes at night: NOWork status: RETIREDAdditional comments: [ ]Transfer of Care or Consult: [ transfer of care ][ consult ]Referring provider: [ ] Jaycee Fox a 68 year oldfemalepresenting for care. Augustina Elam MD [address] [place] [address], [address], [facility] 12/10/2023 17:04:24 4 text/html The patient is [...] Her appetite is normal. Energy level fair.alyssa Espinosaluanne a 68 year oldfemalepresenting for care. Hector Cardoza MD [facility] [place] [address], [address], [facility] 02/10/2024 21:23:08 5 text/html The patient is a 69-year-old female with fibromyalgia syndrome, osteoarthritis and chronic mechanical back pain, who is here for a followup visit today. She reports having undergone pacemaker placement recently by [employer]. She states overall her energy level has improved. She complains today of some bilateral elbow lateral epicondylar pain. This is most pronounced when she is grasping objects, trying to open jars or bottle tops or with any lifting, pushing or pulling. She rates the pain a 4/10 on a scale. Currently she is having more good days than bad days. She rates her morning stiffness as mild, lasting 5-10 minutes in duration. She tolerates her meloxicam without postdosing reflux symptoms, melena or hematochezia, nausea or vomiting, loss of appetite or early satiety, cough or wheezing, aphthous ulcers or epistaxis. She has had no skin rash. No peripheral swelling or vertigo with her pregabalin. She reports overall tolerating the medications well and generally doing well with the exception of the mild flare of her elbows.alyssa Justincy Ruddy a 69 year oldfemalepresenting for care. Hector Cardoza MD [address] [place] [address], [phone], [facility] 07/12/2024 21:58:41 OBGyn Episode No OBEpisode recorded.
--- OUTSIDE RECORDS SUMMARY | 2024-09-06 13:14 | XMS_ITS | Clinical Summary ---
Author Organization [facility] Address [address] [place] [address] Care Team Providers Care Lens Cutter Name Role Phone Bart Fortune MD Primary Care Provider [phone] Source Comments [facility],non-owned Affiliates and Associated Physician Practices is amultiple site organization consisting of ambulatory clinics and hospital sitesin [place], [place], [place] and [place]. This disclosure is being madepursuant to the Care Everywhere program and may not contain all information available regarding this patient. Last updated 18.[facility] Allergies No known active allergies Medications * Be aware that medications may not be up to date on this document. Alwaysverify current medications with the patient. METOPROLOL SUCCINATE ER PO Acti ve FENOFIBRATE MICRONIZED PO Active LOSARTAN POTASSIUM PO Active Furosemide (LASIX PO) Active Social History Tobacco Use Types Packs/Day Years Used Date Smoking Tobacco: Every Day Comments Unknown Sex and Gender Information Value Date Recorded Sex Assigned at Not on file Legal Sex Female 10:57 AM CDT Gender Identity Not on file Sexual Orientation [...] Tdap) 1975 PNEUMOCOCCAL VACCINE 50+ (1 of 1 - PCV) 2006 ZOSTER VACCINE (1 of 2) 2006 COVID-19 VACCINE (1 - 2023-2 5 season) 2024 DEPRESSION SCREENING 05/16/2024 INFLUENZA VACCINE (Season Ended) 2025 Respiratory Syncytial Virus (RSV) Vaccine Pt: or over 60 yrs (1 - 1-dose 75+ series) 2031 HEPATITIS B VACCINE Aged Out No longe r eligible based on patient's age to complete this topic HIB VACCINE Aged Out No longer eligi ble based on patient's age to complete this topic HPV VACCINE Aged Out No longer eligi ble based on patient's age to complete this topic MENINGOCOCCAL (Group B) VACC INE SHARED DECISION-MAKING Aged Out No longer eligibl e based on patient's age to complete this topic MENINGOCOCCAL GROUPS A/C/Y/W VACCINE Aged Out No longer eligible b ased on patient's age to complete this topic Insurance MELANIE Care Teams Lens Cutter Relationship Specialty Start Date End Date Bart Fortune MD [address] [place], [place] [id number] PCP - General Surgery 08/18/16
--- OUTSIDE RECORDS SUMMARY | 2024-09-06 13:14 | XMS_ITS | Encounter Summary ---
Author Organization [facility] Address [address] [place] [address] Care Team Providers Care Hand Painter Name Role Phone Melissa Jj MD Unavailable Christiano Quijano MD Unavailable [phone] Belgica Hernandez PA-C Unavailable [phone] Susy Cho MD Primary Care Provider [phone] Encounter Details Date Type Department Care Team (Late Contact Info) Description 09/05/2024 Orders Only [facility] [address], [place] [address] Melissa Jj MD [address] [place] [address] Social History Tobacco Use Types Packs/Day Years Used Date Smoking Tobacco: Every Day Smokeless Tobacco: Never Alcohol Use Standard Drinks/Week Comments Not Currently 0 (1 standard drink = 0.6 oz pur e alcohol) Comments Unknown Sex and Gender Information Value Date Recorded Sex Assigned at Female 06/26/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 Legal Sex Female 10:24 PM CDT Gender Identity Female 08/05/2021 9:03 AM CDT Sexual Orientation Not on file documented as of this encounter Plan of Treatment Upcoming Encounters Date Type Department Care Team ([facility] Contact Info) Description 09/07/2024 1:30 PM CDT Office Visit [facility] [address] [place], [place] [address] Melissa Jj MD [address] [place] [address] 09/25/2024 1:15 AM CDT Allied Health/Nurse Visit [facility] [address] [place] [phone] Christiano Quijano MD [address] [place], [place] [address] Scheduled Orders Name Type Priority Associated Diagnoses Orde r Schedule ELECTROCARDIOGRAM EKG-NonRad Routine Dizzy Expected: 09/07/2024, Expires: 10/05/2024 documented as of this encounter Visit Diagnoses Diagnosis Dizzy- Primary Dizziness and giddiness documented in this encounter Care Teams Hand Painter Relationship Specialty Start Date End Date Susy Cho MD [address] [place] [address] PCP - General 09/04/24 Melissa Jj MD [address] [place] [address] Consulting Physician CARDIOVASCULAR DISEASE 02/22/23 Christiano Quijano MD [address] [place] [address] Consulting Physician CLINICAL CARDIAC ELECTROPHYSIOLOGY 04/03/24 Belgica Hernandez PA-C [address] [place] [address] Referring Physician PHYSICIAN RESEARCH FELLOW 04/03/24 documented as of this encounter
--- OUTSIDE RECORDS SUMMARY | 2024-09-06 13:15 | XMS_ITS | Clinical Summary ---
Author Organization [facility] Address [address] [place] [address] Phone Care Team Providers Care Ip Attorney Name Role Phone JESSICA ANTON, NATA BURCIAGA MD, SCOTT Primary Care Provider [phone] Reason for Visit and Chief Complaint The Chief Complaint is: follow up and MRI results Plan of Treatment Referrals To [facility] - [address] [place] [address] - Sacroiliitis, not elsewhere classified Note: consent for bilateral SI joint injections Last Documented On 9 7:07AM ; [facility] Assessments Includes: Assessments from this encounter Findings - Sacroiliitis [M46.1 - Sacroiliitis, not elsewhere classified] - Last Documented On 10/30/2018 1:56PM ; [facility] - Lumbar radiculopathy [M54.16 - Radiculopathy, lumbar region] - Last Documented On 10/30/2018 1:56PM ; [facility] - Fibromyalgia [M79.7 - Fibromyalgia] - Last Documented On 10/30/2018 1:56PM ; [facility] - Myalgia [M79.18 - Myalgia, other site] - Last Documented On 10/30/2018 1:56PM ; [facility] - Chronic pain syndrome [G89.4 - Chronic pain syndrome] - Last Documented On 10/30/2018 1:56PM ; [facility] Medical Equipment - Implanted Devices Includes: Current Devices No Medical Equipment Recorded Medications Includes: Medications discussed during this encounter and other current Medications Discontinued / Stopped on this date ARMAAN VILLASEÑOR ANP-BC on 10/04/2018 Lyrica 75MG Oral Capsule Provider: BRI MART Diagnosis: Radiculopathy, l umbar region Last Documented On 9 1:44PM By ARMAAN MART ; [facility] New / Renewed during this visit ARMAAN MART on 10/30/2018 Lyrica 150MG Oral Capsule Provider: ARMAAN MAJOR 30 day supply: 60 capsule, 0 refills Diagnosis: Radiculopathy, lumbar region 1 CAPSULE TWO TIMES A DAY Pharmacy: [address], [id number] - Last Documented On 9 10:10AM By ARMAAN MART ; [facility] Current Medications (continue as prescribed) Lyrica 150 MG Oral Capsule 04/06/2019 Provider: Daysi MART Diagnosis: 1 CAPSULE TWO TIMES A DAY Last Documented On 9 12:13PM By ARMAAN MART ; [facility] Lyrica 150MG Oral Capsule 12/11/2018 Provider: ARMAAN MAJOR Diagnosis: Radiculopathy, l umbar region TAKE 1 CAPSULE BY MOUTH TWICE DAILY Last Documented On 9 10:15AM By ARMAAN MART ; [facility] Losartan Potassium-HCTZ 50-12.5MG Oral Tablet 08/23/19 19 Provider: Diagnosis: Last Documented On 08/22/2018 8:25AM By Aracelis LARA ; [facility] Nabumetone 750MG Oral Tablet 08/22/2018 Provider: Diagnosis: Last Documented On 08/22/2018 8:26AM By Aracelis LARA ; [facility] Lasix 40MG Oral Tablet 08/22/2018 Provider: Diagnosis: Last Documented On 08/22/2018 8:26AM By Aracelis LARA ; [facility] Metoprolol Succinate ER 50MG Oral Tablet, extended-release 24 hour 08/22/2018 Provider: Diagnosis: Last Documented On 08/22/2018 8:24AM By Aracelis LARA ; [facility] [place] 10-325MG Oral Tablet 08/22/2018 Provider: Diagnosis: Last Documented On 08/22/2018 8:24AM By Aracelis LARA ; [facility] Cymbalta 30MG Oral Capsule, delayed-release particles 08/22/2018 Provider: Diagnosis: Last Documented On 08/22/2018 8:23AM By Aracelis LARA ; [facility] Crestor 20MG Oral Tablet 08/22/2018 Provider: Diagnosis: Last Documented On 08/22/2018 8:23AM By Aracelis LARA ; [facility] Ativan 0.5MG Oral Tablet 08/22/2018 Provider: Diagnosis: Last Documented On 08/22/2018 8:22AM By Aracelis LARA ; [facility] Medications Administered Includes: Administered Medications from this [...] 96 Last Documented: On 10/30/2018 1:15PM ; [facility] Results Includes: Results discussed during this encounter [...] 10/30/2018 Last Documented On 9 1:56PM ; [facility] Cigarette smoking 10 pack(s)/day 019 Last Documented On 9 1:09PM ; [facility] 09/04/2018 Last Documented On 9 1:09PM ; [facility] No consumption of alcohol 09/04/2018 Last Documented On 9 1:09PM ; [facility] Not using drugs 09/04/2018 Last Documented On 9 1:09PM ; [facility] Smoking cigarettes per day 09/04/2018 Last Documented On 9 1:09PM ; [facility] Tobacco use 09/04/2018 Last Documented On 9 1:09PM ; [facility] Medical History Includes: Medical History addressed [...] Check-Out Time Diagnosis CHECK UP ARMAAN VALENTINE-JANETH [facility]-MD 9 12:52PM 1:54PM Chronic Pain Syndrome,Sacr oiliitis,Lumb ar Radiculopathy ,Fibromyalgia ,Myalgia Insurance Includes: Active Insurance Policies Plan Name Member ID Group # Subscriber Relationship Effect cesar Dates 1 - [facility] [id number] DANK ALEXIS Self Clinical Notes Includes: Clinical Notes from this encounter No Clinical Notes Recorded
--- OUTSIDE RECORDS SUMMARY | 2024-09-06 13:15 | XMS_ITS | Clinical Summary ---
Author Organization [facility] Address [address] [place] [address] Phone Care Team Providers Care System Administration Advisor Name Role Phone JESSICA ANTON, NATA BURCIAGA MD, SCOTT Primary Care Provider [phone] Reason for Visit and Chief Complaint * [...] TWO TIMES A DAY Pharmacy: Keith dimas [address], [id number] - Last Documented On 9 12:13PM By ARMAAN MART ; [facility] Current Medications (continue as prescribed) Lyrica 150MG Oral Capsule 12/11/2018 Provider: ARMAAN MAJOR Diagnosis: Radiculopathy, l umbar region TAKE 1 CAPSULE BY MOUTH TWICE DAILY Last Documented On 9 10:15AM By ARMAAN MART ; [facility] Losartan Potassium-HCTZ 50-12.5MG Oral Tablet 08/23/19 19 Provider: Diagnosis: Last Documented On 08/22/2018 8:25AM By Aracelis LARA ; [facility] Nabumetone 750MG Oral Tablet 08/22/2018 Provider: Diagnosis: Last Documented On 08/22/2018 8:26AM By Aracelis LARA ; [facility] Lasix 40MG Oral Tablet 08/22/2018 Provider: Diagnosis: Last Documented On 08/22/2018 8:26AM By Aracelis LARA ; [facility] Metoprolol Succinate ER 50MG Oral Tablet, extended-release 24 hour 08/22/2018 Provider: Diagnosis: Last Documented On 08/22/2018 8:24AM By Aracelis LARA ; [facility] [place] 10-325MG Oral Tablet 08/22/2018 Provider: Diagnosis: Last Documented On 08/22/2018 8:24AM By Aracelis LARA ; [facility] Cymbalta 30MG Oral Capsule, delayed-release particles 08/22/2018 Provider: Diagnosis: Last Documented On 08/22/2018 8:23AM By Aracelis LARA ; [facility] Crestor 20MG Oral Tablet 08/22/2018 Provider: Diagnosis: Last Documented On 08/22/2018 8:23AM By Aracelis LARA ; [facility] Ativan 0.5MG Oral Tablet 08/22/2018 Provider: Diagnosis: Last Documented On 08/22/2018 8:22AM By Aracelis LARA ; [facility] Medications Administered Includes: Administered [...] 10/30/2018 Last Documented On 9 9:58AM ; [facility] Cigarette smoking 10 pack(s)/day 019 Last Documented On 9 9:58AM ; [facility] 09/04/2018 Last Documented On 9 9:58AM ; [facility] No consumption of alcohol 09/04/2018 Last Documented On 9 9:58AM ; [facility] Not using drugs 09/04/2018 Last Documented On 9 9:58AM ; [facility] Smoking cigarettes per day 09/04/2018 Last Documented On 9 9:58AM ; [facility] Tobacco use 09/04/2018 Last Documented On 9 9:58AM ; [facility] Medical History Includes: Medical History [...] Time Diagnosis * PHONE CALL ARMAAN VILLASEÑOR [facility] 04/06/2019 9:58AM 11:59PM Insurance Includes: Active Insurance Policies Plan Name Member ID Group # Subscriber Relationship Effect cesar Dates 1 - [facility] [id number] DANK ALEXIS Self Clinical Notes Includes: Clinical Notes from this encounter No Clinical Notes Recorded
--- OUTSIDE RECORDS SUMMARY | 2024-09-06 13:15 | XMS_ITS | Clinical Summary ---
Author Organization [facility] Address [address] [place] [address] Phone Care Team Providers Care Crop And Soil Scientist Name Role Phone JESSICA ANTON, NATA BURCIAGA MD, SCOTT Primary Care Provider [phone] Reason for Visit and Chief Complaint PAIN [...] On 9 12:13PM By ARMAAN MART ; [facility] Lyrica 150MG Oral Capsule 12/11/2018 Provider: ARMAAN MAJOR Diagnosis: Radiculopathy, l umbar region TAKE 1 CAPSULE BY MOUTH TWICE DAILY Last Documented On 9 10:15AM By ARMAAN MART ; [facility] Losartan Potassium-HCTZ 50-12.5MG Oral Tablet 08/23/19 19 Provider: Diagnosis: Last Documented On 08/22/2018 8:25AM By Aracelis LARA ; [facility] Nabumetone 750MG Oral Tablet 08/22/2018 Provider: Diagnosis: Last Documented On 08/22/2018 8:26AM By Aracelis LARA ; [facility] Lasix 40MG Oral Tablet 08/22/2018 Provider: Diagnosis: Last Documented On 08/22/2018 8:26AM By Aracelis LARA ; [facility] Metoprolol Succinate ER 50MG Oral Tablet, extended-release 24 hour 08/22/2018 Provider: Diagnosis: Last Documented On 08/22/2018 8:24AM By Aracelis LARA ; [facility] [place] 10-325MG Oral Tablet 08/22/2018 Provider: Diagnosis: Last Documented On 08/22/2018 8:24AM By Aracelis LARA ; [facility] Cymbalta 30MG Oral Capsule, delayed-release particles 08/22/2018 Provider: Diagnosis: Last Documented On 08/22/2018 8:23AM By Aracelis LARA ; [facility] Crestor 20MG Oral Tablet 08/22/2018 Provider: Diagnosis: Last Documented On 08/22/2018 8:23AM By Aracelis LARA ; [facility] Ativan 0.5MG Oral Tablet 08/22/2018 Provider: Diagnosis: Last Documented On 08/22/2018 8:22AM By Aracelis LARA ; [facility] Medications Administered Includes: Administered Medications from this [...] Subscriber Relationship Effect cesar Dates 1 - [facility] [id number] DANK Chapa Clinical Notes Includes: Clinical Notes from this encounter No Clinical Notes Recorded
--- OUTSIDE RECORDS SUMMARY | 2024-09-06 13:15 | XMS_ITS | Clinical Summary ---
Author Organization [facility] Address [address] [place] [address] Phone Care Team Providers Care Silk Screen Processor Name Role Phone JESSICA ANTON, NATA BURCIAGA MD, SCOTT Primary Care Provider [phone] Reason for Visit and Chief Complaint NO [...] 9 12:13PM By ARMAAN MART ; [facility] Lyrica 150MG Oral Capsule 12/11/2018 Provider: ARMAAN MAJOR Diagnosis: Radiculopathy, l umbar region TAKE 1 CAPSULE BY MOUTH TWICE DAILY Last Documented On 9 10:15AM By ARMAAN MART ; [facility] Losartan Potassium-HCTZ 50-12.5MG Oral Tablet 08/23/19 19 Provider: Diagnosis: Last Documented On 08/22/2018 8:25AM By Aracelis LARA ; [facility] Nabumetone 750MG Oral Tablet 08/22/2018 Provider: Diagnosis: Last Documented On 08/22/2018 8:26AM By Aracelis LARA ; [facility] Lasix 40MG Oral Tablet 08/22/2018 Provider: Diagnosis: Last Documented On 08/22/2018 8:26AM By Aracelis LARA ; [facility] Metoprolol Succinate ER 50MG Oral Tablet, extended-release 24 hour 08/22/2018 Provider: Diagnosis: Last Documented On 08/22/2018 8:24AM By Aracelis LARA ; [facility] [place] 10-325MG Oral Tablet 08/22/2018 Provider: Diagnosis: Last Documented On 08/22/2018 8:24AM By Aracelis LARA ; [facility] Cymbalta 30MG Oral Capsule, delayed-release particles 08/22/2018 Provider: Diagnosis: Last Documented On 08/22/2018 8:23AM By Aracelis LARA ; [facility] Crestor 20MG Oral Tablet 08/22/2018 Provider: Diagnosis: Last Documented On 08/22/2018 8:23AM By Aracelis LARA ; [facility] Ativan 0.5MG Oral Tablet 08/22/2018 Provider: Diagnosis: Last Documented On 08/22/2018 8:22AM By Aracelis LARA ; [facility] Medications Administered Includes: Administered Medications from [...] Time Check-Out Time Diagnosis NO SHOW ARMAAN [facility]- 10/24/2018 9:19AM 11:59PM Insurance Includes: Active Insurance Policies Plan Name Member ID Group # Subscriber Relationship Effect cesar Dates 1 - [facility] [id number] DANK ALEXIS Self Clinical Notes Includes: Clinical Notes from this encounter No Clinical Notes Recorded
--- OUTSIDE RECORDS SUMMARY | 2024-09-06 13:15 | XMS_ITS ---
Author Organization [facility] Address [address] [place] [address] Phone Care Team Providers Care Machine Technician Name Role Phone JESSICA ANTON, NATA BURCIAGA MD, SCOTT Primary Care Provider [phone] Plan of Treatment Referrals To [facility] - [address] [place] [address] - Sacroiliitis, not elsewhere classified Note: consent for bilateral SI joint injections Last Documented On 9 7:07AM ; [facility] Assessments Includes: Assessments for all patient encounters Findings Encounter Date Chronic pain syndrome PAIN MANAGEMENT FO LLOW UP with ARMAAN L CHARLEEN [facility] 11/22/2018 Last Documented On 9 1:27PM ; [facility] Fibromyalgia PAIN MANAGEMENT FOLLOW UP with T ROXANNE L CHARLEEN [facility] 11/22/2018 Last Documented On 9 1:27PM ; [facility] Lumbar radiculopathy PAIN MANAGEMENT FOL LOW UP with ARMAAN L CHARLEEN [facility] 11/22/2018 Last Documented On 9 1:27PM ; [facility] Myalgia PAIN MANAGEMENT FOLLOW UP with T ROXANNE L CHARLEEN [facility] 11/22/2018 Last Documented On 9 1:27PM ; [facility] Sacroiliitis PAIN MANAGEMENT FOLLOW UP with T ROXANNE L CHARLEEN [facility] 11/22/2018 Last Documented On 9 1:27PM ; [facility] Chronic pain syndrome CHECK UP with ARMAAN L BLE VINS [facility] 10/30/2018 Last Documented On 9 1:56PM ; [facility] Fibromyalgia CHECK UP with ARMAAN L CHARLEEN [facility] 10/30/2018 Last Documented On 9 1:56PM ; [facility] Lumbar radiculopathy CHECK UP with ARMAAN L BLEV INS [facility] 10/30/2018 Last Documented On 9 1:56PM ; [facility] Myalgia CHECK UP with ARMAAN L CHARLEEN [facility] 10/30/2018 Last Documented On 9 1:56PM ; [facility] Sacroiliitis CHECK UP with ARMAAN L CHARLEEN [facility] 10/30/2018 Last Documented On 9 1:56PM ; [facility] Chronic pain syndrome PAIN MANAGEMENT FO LLOW UP with ARMAAN L CHARLEEN [facility] 10/04/2018 Last Documented On 9 1:21PM ; [facility] Fibromyalgia PAIN MANAGEMENT FOLLOW UP with T ROXANNE L CHARLEEN [facility] 10/04/2018 Last Documented On 9 1:21PM ; [facility] Lumbar radiculopathy PAIN MANAGEMENT FOL LOW UP with ARMAAN L CHARLEEN [facility] 10/04/2018 Last Documented On 9 1:21PM ; [facility] Myalgia PAIN MANAGEMENT FOLLOW UP with T ROXANNE L CHARLEEN [facility] 10/04/2018 Last Documented On 9 1:21PM ; [facility] Sacroiliitis PAIN MANAGEMENT FOLLOW UP with T ROXANNE L CHARLEEN [facility] 10/04/2018 Last Documented On 9 1:21PM ; [facility] Chronic pain syndrome PAIN MANAGEMENT NE W CONSULT with ARMAAN L CHARLEEN ANP-[facility] 09/04/2018 Last Documented On 9 4:37PM ; [facility] Fibromyalgia PAIN MANAGEMENT NEW CONSULT with ARMAAN L CHARLEEN ANP-[facility] 09/04/2018 Last Documented On 9 4:37PM ; [facility] Lumbar radiculopathy PAIN MANAGEMENT NEW CONSULT with ARMAAN L CHARLEEN ANP-BC 09/04/2018 Last Documented On 9 4:37PM ; [facility] Myalgia PAIN MANAGEMENT NEW CONSULT with ARMAAN MART 09/04/2018 Last Documented On 9 4:37PM ; [facility] Sacroiliitis PAIN MANAGEMENT NEW CONSULT with ARMAAN MART 09/04/2018 Last Documented On 9 4:37PM ; [facility] Medical Equipment - Implanted Devices Includes: Current and historical Devices No Medical Equipment Recorded Medications Includes: Current and historical Medications Current Medications (continue as prescribed) Lyrica 150 MG Oral Capsule 04/06/2019 Provider: Daysi KAHN Diagnosis: 1 CAPSULE TWO TIMES A DAY Last Documented On 9 12:13PM By [facility] Lyrica 150MG Oral Capsule 12/11/2018 Provider: ARMAAN MAJOR Diagnosis: Radiculopathy, l umbar region TAKE 1 CAPSULE BY MOUTH TWICE DAILY Last Documented On 9 10:15AM By ARMAAN KAHN ; [facility] Losartan Potassium-HCTZ 50-12.5MG Oral Tablet 08/23/19 19 Provider: Diagnosis: Last Documented On 08/22/2018 8:25AM By Aracelis LARA ; [facility] Nabumetone 750MG Oral Tablet 08/22/2018 Provider: Diagnosis: Last Documented On 08/22/2018 8:26AM By Aracelis LARA ; [facility] Lasix 40MG Oral Tablet 08/22/2018 Provider: Diagnosis: Last Documented On 08/22/2018 8:26AM By Aracelis LARA ; [facility] Metoprolol Succinate ER 50MG Oral Tablet, extended-release 24 hour 08/22/2018 Provider: Diagnosis: Last Documented On 08/22/2018 8:24AM By Aracelis LARA ; [facility] [place] 10-325MG Oral Tablet 08/22/2018 Provider: Diagnosis: Last Documented On 08/22/2018 8:24AM By Aracelis LARA ; [facility] Cymbalta 30MG Oral Capsule, delayed-release particles 08/22/2018 Provider: Diagnosis: Last Documented On 08/22/2018 8:23AM By Aracelis LARA ; [facility] Crestor 20MG Oral Tablet 08/22/2018 Provider: Diagnosis: Last Documented On 08/22/2018 8:23AM By Aracelis LARA ; [facility] Ativan 0.5MG Oral Tablet 08/22/2018 Provider: Diagnosis: Last Documented On 08/22/2018 8:22AM By Aracelis LARA ; [facility] Past Medications on file Lyrica 150MG Oral Capsule 10/30/2018 - 12/11/2018 Provider: ARMAAN MART Diagnosis: Radiculopathy, l umbar region 1 CAPSULE TWO TIMES A DAY Last Documented On 9 10:10AM By ARMAAN MART ; [facility] Lyrica 75MG Oral Capsule 10/04/2018 - 10/30/2018 Provider: ARMAAN MART Diagnosis: Radiculopathy, l umbar region 1 CAPSULE TWO TIMES A DAY Last Documented On 9 1:44PM By ARMAAN MART ; [facility] Lyrica 150MG Oral Capsule 10/04/2018 - 10/30/2018 Provider: ARMAAN MART Diagnosis: Radiculopathy, l umbar region 1 CAPSULE TWO TIMES A DAY Last Documented On 9 1:56PM By ARMAAN MART ; [facility] Medications Administered Includes: Administered Medications in patient's chart No Administered Medications Recorded Results Includes: Results from 09/07/2023 through 09/06/2024 No Results Recorded For Specified Dates History of Present Illness History of Present Illness not supported for this document type No History of Present Illness Recorded Social History Description Last Updated Smoking status : Current everyday smoker 10/30/2018 Last Documented On 9 1:56PM ; [facility] Cigarette smoking 10 pack(s)/day 019 Last Documented On 9 4:37PM ; [facility] 09/04/2018 Last Documented On 9 4:37PM ; [facility] No consumption of alcohol 09/04/2018 Last Documented On 9 4:37PM ; [facility] Not using drugs 09/04/2018 Last Documented On 9 4:37PM ; [facility] Smoking cigarettes per day 09/04/2018 Last Documented On 9 4:37PM ; [facility] Tobacco use 09/04/2018 Last Documented On 9 4:37PM ; [facility] Medical History Includes: [...] Subscriber Relationship Effect cesar Dates 1 - [facility] [id number] DANK Chapa Clinical Notes Includes: Signed Clinical Notes starting from 06/04/2022 No Clinical Notes Recorded
--- OUTSIDE RECORDS SUMMARY | 2024-09-06 13:15 | XMS_ITS | Clinical Summary ---
Author Organization [facility] Address [address] [place] [address] Care Team Providers Care Grain Loader Name Role Phone Melissa Jj MD Unavailable Christiano Lobato MD Unavailable [phone] Belgica Hernandez PA-C Unavailable + [phone] Susy Cho MD Primary Care Provider [phone] Allergies Active Allergy Reactions Criticality Noted Date [...] Diagnosed Date Pacemaker 06/26/2024 Sinus node dysfunction ([facility]) 024 Vertigo, central origin 04/05/2022 Encounters Date Type Department Care Team Description 09/05/2024 Orders Only [facility] [address] [place] [address] Melsisa Jj MD 08/29/2024 Orders Only [facility] [address] [place] [address] Melissa Jj MD 08/10/2024 Patient Outreach [employer] [address] [place] [phone] Tasha Delacruz LPN Pre-visit Gap Closure 06/26/2024 10:00 AM CREDIT CONTROL ASSISTANT Allied Health/Nurse Visit [facility] [address] [place] [address] Christiano Lobato MD In Clinic Device Check 06/26/2024 10:00 AM CREDIT CONTROL ASSISTANT Office Visit [facility] [address] [place] [address] Belgica Hernandez PA-C Follow Up 06/26/2024 Orders Only [facility] [address] [place] [address] Christiano Lobato MD 06/26/2024 Travel from Last 3 Months Family History [...] Sex Assigned at Female 06/26/2024 9:45 AM CREDIT CONTROL ASSISTANT Legal Sex Female 10:24 PM CDT Gender Identity Female 08/05/2021 9:03 AM CDT Sexual Orientation Not on file Last Filed Vital Signs Vital Sign Reading Time Taken Comments Blood Pressure 136/82 06/26/2024 9:47 AM CREDIT CONTROL ASSISTANT Pulse 100 06/26/2024 9:47 AM CREDIT CONTROL ASSISTANT Temperature 37 C (98.6 F) 03/23/2024 12:52 PM CREDIT CONTROL ASSISTANT Respiratory Rate 18 06/26/2024 9:47 AM CREDIT CONTROL ASSISTANT Oxygen Saturation 94% 06/26/2024 9:47 AM CREDIT CONTROL ASSISTANT Inhaled Oxygen Concentration - - Weight 93.9 kg (207 lb) 06/26/2024 9:47 AM CREDIT CONTROL ASSISTANT Height 160 cm (5' 3 ) 06/26/2024 9:47 AM CREDIT CONTROL ASSISTANT Body Mass Index 36.67 06/26/2024 9:47 AM CREDIT CONTROL ASSISTANT Plan of Treatment Upcoming Encounters Date Type Department Care Team (Late st Contact Info) Description 09/07/2024 1:30 PM CDT Office Visit [facility] [address] [place] [address] Melissa Jj MD [address] [place], [place] [address] 09/25/2024 1:15 AM CDT Allied Health/Nurse Visit [facility] [address] [place] [address] Christiano Lobato MD [address] [place] [address] Health Maintenance Due Date Last Done Comments Colorectal Cancer Screening Colonoscopy (10 Years) 1955 Hepatitis C 1974 Pneumococcal Vaccine: 50+ Years (1 of 2 - PCV) 1975 Annual Medicare Wellness Visit 2021 Dexa Scan (General) 2021 COVID-19 Vaccine ( season) 2024 03/28/2023, 03/09/2022, 08/19/2021, Additional history exists Mammogram Screening 03/08/2025 03/08/2023, DTaP, Tdap and Td Vaccines (2 - Td or Tdap) 11/27/2029 11/28/2019 RSV Immunization or 60+ Years (1 - 1-dose 75+ series) 2031 Zoster Vaccines Completed 11/12/2020, 11/28/2019 Meningococcal B Vaccine Aged Out No l onger eligible based on patient's age to complete this topic Meningococcal Vaccine Aged Out No ricardo henny eligible based on patient's age to complete this topic RSV Immunizations Under 20 Months Aged Out No longer eligible based on patient's age to complete this topic Medical Devices Implanted Type Area Peer Health Promoter Device Identifier Shelf Expiration Date Model / Serial / Lot Medtronic Selectsecure Rv/Lbb/His-2023 Implanted:2023 by Christiano Lobato MD (Quantity not on file) Lead Implant [employer] 01/30/2026 3830-69 / [id number] / Medtronic Capsurefix Ra-03/23/2024 Implanted:2023 by Christiano Lobato MD (Quantity not on file) Lead Implant [employer] 01/19/2026 4076-52 / [id number] / Medtronic [place] Mri Dr-03/23/2024 Implanted:2023 by Christiano Lobato MD (Quantity not on file) Pacemaker [employer] 07/13/2025 [id number] / [id number] / Description:DX: SND Procedures Procedure Name Priority Date/Time Associated Diagnosis Comments ELECTROCARDIOGRAM (NON MIDMARK ACQUIRED) Routine 06/26/2024 10:07 AM CREDIT CONTROL ASSISTANT Pacemaker Bradycardia Sinus node dysfunction ([facility]) MG SCREENING W IRENE JULES DIGI Routine 03/08/2023 1:52 PM CDT Screening mammogram, encounter for from Last 3 Months or Most Recently Relevant to Health Maintenance Results * ELECTROCARDIOGRAM (06/26/2024 10:07 AM CREDIT CONTROL ASSISTANT) 06/26/2024 10:0 7 AM CREDIT CONTROL ASSISTANT [facility] - 06/28/2024 5:26 AM [facility] Hand Cardiovascular, [facility] [place] [address] [place] [address] Test Date: 2024-06-26 Pat Name: JAYCEE ESPINOSA Department: 105 Room: Gender: Female Glass Belt Sander: : 1955 Requested By: CHRISTIANO LOBATO Order Number: [id number] Reading MD: Christiano Lobato Measurements Intervals Switzer Rate: 63 P: 161 TX: 183 QRS: -16 QRSD: 98 T: 45 QT: 386 QTc: 398 Interpretive Statements ELECTRONIC ATRIAL PACEMAKER ABNORMAL RHYTHM ECG IT CONTROL ASSISTANT Procedure Note Christiano Lobato MD - 06/28/2024 Hand Cardiovascular, [facility] [address] [place] [address] Test Date: 2024-06-26 Pat Name: JAYCEE VANESA Department: 105 Room: Gender: Female Glass Belt Sander: [facility] : 1955 Requested By: CHRISTIANO LOBATO Order Number: [id number] Reading MD: Christiano Lobato Measurements Intervals Switzer Rate: 63 P: 161 TX: 183 QRS: -16 QRSD: 98 T: 45 QT: 386 QTc: 398 Interpretive Statements ELECTRONIC ATRIAL PACEMAKER ABNORMAL RHYTHM ECG IT CONTROL ASSISTANT Christiano Lobato MD PROCEDURES-ORDERABLE NO C HARGE Final Result [facility] * MG SCREENING W IRENE JULES DIGI [...] BI-RADS 2 - BENIGN FINDING(S) Ordered By: JEANE ARCHULETA Interpreted By: Miguel Herman MD, 03/08/2023 5:17 PM Jeane Archuleta APNP MAMMO Final Resu lt from Last 3 Months or Most Recently Relevant to Health Maintenance Insurance MEDICARE [facility] Advance Directives * Full Code (Latest Code Status on File) Date Activated Date Inactivated Comments 03/23/2024 4:14 PM 03/23/2024 7:23 PM Care Teams Grain Loader Relationship Specialty Start Date End Date Susy Cho MD [address] [place] [address] PCP - General 09/04/24 Melissa Jj MD [address] [place], [place] [address] Consulting Physician CARDIOVASCULAR DISEASE 02/22/23 Christiano Lobato MD [address] [place] [address] Consulting Physician CLINICAL CARDIAC ELECTROPHYSIOLOGY 04/03/24 Belgica Hernandez PA-C [address] [place], [place] [address] Referring Physician PHYSICIAN TECHNOLOGY AND ENGINEERING TEACHER 04/03/24
== END 2024-09-06 11:51 | disposition home or self-care (01) ==
LOC: CHSIMG 11:52
DX: Z78.0 Asymptomatic menopausal state (principal)
CPT/HCPCS: 77080

== ENCOUNTER 2024-12-21 14:21 | Outpatient (CLI) | payer MEDICARE, SELFPAY ==
--- OUTSIDE RECORDS SUMMARY | 2024-12-21 14:26 | XMS_ITS | Clinical Summary ---
Author Organization [facility] Address [address] [place] [address] Care Team Providers Care Cost Engineer Name Role Phone Bart Fortune MD Primary Care Provider [phone] Source Comments [facility],non-owned Affiliates and Associated Physician Practices is amultiple site organization consisting of ambulatory clinics and hospital sitesin [place], [place], [place] and [place]. This disclosure is being madepursuant to the Care Everywhere program and may not contain all information available regarding this patient. Last updated [facility] Allergies No known active allergies Medications * [...] 2:45 PM CDT Height 160 cm (5' 3) 08/18/2016 2:45 PM CDT Body Mass Index [...] season) 2024 DEPRESSION SCREENING 05/16/2024 INFLUENZA VACCINE (#1) 2025 Respiratory Syncytial Virus (RSV) Vaccine Pt: [...] complete this topic Insurance MELANIE Care Teams Cost Engineer Relationship Specialty Start Date End Date Bart Fortune MD [address], [place] [phone] PCP - General Surgery 08/18/16
--- OUTSIDE RECORDS SUMMARY | 2024-12-21 14:26 | XMS_ITS | Encounter Summary ---
Author Organization [facility] Address [address] [place] [address] Care Team Providers Care Churn Operator Name Role Phone Jeane Archuletashell OBRIEN Primary Care Provider + [phone] Melissa Jj MD Unavailable Christiano Quijano MD Unavailable [phone] Belgica Hernandez PA-C Unavailable + [phone] Susy Cho MD Primary Care Provider [phone] Encounter Details Date Type Department Care Team (Late Contact Info) Description 03/13/2024 [email or web address] Message Enc [facility] [address] [place] [address] Richbroussard, [facility] Provider Echo results Social History Tobacco Use Types Packs/Day Years Used Date Smoking Tobacco: Every Day Smokeless Tobacco: Never Alcohol Use Standard Drinks/Week Comments Not Currently 0 (1 standard drink = 0.6 oz pur e alcohol) Comments Unknown Sex and Gender Information Value Date Recorded Sex Assigned at Female 06/26/2024 9:45 AM CITY MAGISTRATE Legal Sex Female 10:24 PM CDT Gender Identity Female 08/05/2021 9:03 AM CDT Sexual Orientation Not on file documented as of this encounter Plan of Treatment Upcoming Encounters Date Type Department Care Team (Late Contact Info) Description 01/22/2025 1:30 AM CDT Allied Health/Nurse Visit [facility] [address] [place] [address] Christiano Quijano MD [address] [place] [address] 09/09/2025 1:00 PM CDT Appointment [facility] Non Invasive Cardiology - [facility] [place] [address] [place] [address] Melissa Jj MD [address] [place], [place] [address] 09/16/2025 1:00 PM CDT Office Visit [facility] [address] [place] [address] Melissa Jj MD [address] [place], [place] [phone] documented as of this encounter Visit Diagnoses Not on filedocumented in this encounter Care Teams Churn Operator Relationship Specialty Start Date End Date Jeane Archuleta APNP [address] [place] [address] PCP - General 02/10/23 09/03/24 Susy Cho MD [address] [place] [address] PCP - General 09/04/24 Melissa Jj MD [address] [place] [phone] Consulting Physician CARDIOVASCULAR DISEASE 02/22/23 Christiano Quijano MD [address] [place] [address]91 Consulting Physician CLINICAL CARDIAC ELECTROPHYSIOLOGY 04/03/24 Belgica Hernandez PA-C [address] [place] [address] [id number] Referring Physician PHYSICIAN GLASS PRODUCTS INSPECTOR 04/03/24 documented as of this encounter
--- OUTSIDE RECORDS SUMMARY | 2024-12-21 14:26 | XMS_ITS | Clinical Summary ---
Author Organization [facility] Address [address] [place] [address] Care Team Providers Care Echometer Engineer Name Role Phone Melissa Jj MD Unavailable Christiano Quijano MD Unavailable [phone] Belgica Hernandez PA-C Unavailable [phone] Susy Cho MD Primary Care Provider [phone] Allergies Active Allergy Reactions Criticality Noted Date [...] Diagnosed Date Pacemaker 06/26/2024 Sinus node dysfunction ([facility]/HCC) 024 Vertigo, central origin 04/05/2022 Encounters Date Type Department Care Team Description 09/24/2024 3:00 AM CDT Allied Health/Nurse Visit [facility] [address] [place] [address] Christiano Quijano MD from Last 3 Months Family History Medical [...] Sex Assigned at Female 06/26/2024 9:45 AM SOCIAL WORK SPECIALIST Legal Sex Female 10:24 PM CDT Gender Identity Female 08/05/2021 9:03 AM CDT Sexual Orientation Not on file Last Filed Vital Signs Vital Sign Reading Time Taken Comments Blood Pressure 128/74 09/07/2024 1:25 PM CDT Pulse 67 09/07/2024 1:25 PM CDT Temperature 37 C (98.6 F) 03/23/2024 12:52 PM SOCIAL WORK SPECIALIST Respiratory Rate 16 09/07/2024 1:25 PM CDT Oxygen Saturation 97% 09/07/2024 1:25 PM CDT Inhaled Oxygen Concentration - - Weight 93.8 kg (206 lb 12.8 oz) 09/07/2024 1:25 PM CDT Height 160 cm (5' 3) 09/07/2024 1:25 PM CDT Body Mass Index 36.63 09/07/2024 1:25 PM CDT Plan of Treatment Upcoming Encounters Date Type Department Care Team (Late st Contact Info) Description 01/22/2025 1:30 AM CDT Allied Health/Nurse Visit [facility] [address] [place] [address] Christiano Quijano MD [address] [place] [address] 09/09/2025 1:[address] [facility] Non Invasive Cardiology - [place] [facility] [place] [address] [place] [address] Melissa Jj MD [address] [place], [place] [address] 09/16/2025 1:00 PM CDT Office Visit [place] [facility] [address] [place], [place] [address] Melissa Jj MD [address] [place], [place] [address] Health Maintenance Due Date Last Done Comments Colorectal Cancer Screening Colonoscopy (10 Years) 1955 Kidney Health Evaluation 1955 Diabetes: Retinopathy Eye Exam 1974 Hepatitis C 1974 Pneumococcal Vaccine: 50+ Years (1 of 2 - PCV) 1975 RSV Immunization or 60+ Years (1 - Risk 60-74 years 1-dose series) 2016 Annual Medicare Wellness Visit 2021 Dexa Scan (General) 2021 Hemoglobin A1C 08/09/2023 02/08/2023 Lipid Panel 08/11/2023 08/10/2022 COVID-19 Vaccine ( season) 2024 03/28/2023, 03/09/2022, 08/19/2021, Additional history exists Mammogram Screening 03/08/2025 03/08/2023, DTaP, Tdap and Td Vaccines (2 - Td or Tdap) 11/27/2029 11/28/2019 Zoster Vaccines Completed 11/12/2020, 11/28/2019 Meningococcal B Vaccine Aged Out No l onger eligible based on patient's age to complete this topic Meningococcal Vaccine Aged Out No ricardo henny eligible based on patient's age to complete this topic RSV Immunizations Under 20 Months Aged Out No longer eligible based on patient's age to complete this topic Medical Devices Implanted Type Area Rail Flaw Detector Operator Device Identifier Shelf Expiration Date Model / Serial / Lot Medtronic Selectsecure Rv/Lbb/His-2023 Implanted:2023 by Christiano Quijano MD (Quantity not on file) Lead Implant [employer] 01/30/2026 3830-69 / [id number] / Medtronic Capsurefix Ra-03/23/2024 Implanted:2023 by Christiano Quijano MD (Quantity not on file) Lead Implant [employer] 01/19/2026 4076-52 / [id number] / Medtronic [place] Mri Dr-03/23/2024 Implanted:2023 by Christiano Quijano MD (Quantity not on file) Pacemaker [employer] 07/13/2025 [id number] / [id number] / Description:DX: SND Procedures Procedure Name Priority Date/Time Associated Diagnosis Comments MG SCREENING W IRENE JULES DIGI Routine 03/08/2023 1:52 PM CDT Screening mammogram, encounter for HEMOGLOBIN, GLYCATED (OUTSIDE LAB) Routine 02/08/2023 LIPID PANEL (OUTSIDE LAB) Routine 08/10/2022 from Last 3 Months or Most Recently [...] By: Miguel Herman MD, 03/08/2023 5:17 PM us Jeane Archuleta APNP MAMMO Final Resu lt * HEMOGLOBIN, GLYCATED (OUTSIDE LAB) (02/08/2023) HGB A1C 6.7 % 02/08/2023 us Default History Genericprovider LAB-OUTSIDE/ABST RACTED Final Result * LIPID PANEL (OUTSIDE LAB) (08/10/2022) CHOLESTEROL 165 TRIGLYCERIDES 136 HDL 52 LDL (CALCULATED) 89 VLDL CALCULATION 24 CHOL/HDL RATIO 3.2 08/10/2022 us Default History Genericprovider LAB-OUTSIDE/ABST RACTED Final Result from Last 3 Months or Most Recently Relevant to [place] [id number] [employer] Advance Directives * Full Code (Latest Code Status on File) Date Activated Date Inactivated Comments 03/23/2024 4:14 PM 03/23/2024 7:23 PM Care Teams Echometer Engineer Relationship Specialty Start Date End Date Susy Cho MD [address] [place] [address] PCP - General 09/04/24 Melissa Jj MD [address] [place] [address] Consulting Physician CARDIOVASCULAR DISEASE 02/22/23 Christiano Quijano MD [address] [place] [address] Consulting Physician CLINICAL CARDIAC ELECTROPHYSIOLOGY 04/03/24 Belgica Hernandez PA-C [address] [place], [place] [address] Referring Physician PHYSICIAN LINEN SUPPLY LOAD BUILDER 04/03/24
--- OUTSIDE RECORDS SUMMARY | 2024-12-21 14:26 | XMS_ITS | Encounter Summary ---
Author Organization [facility] Address [address] [place] [address] Care Team Providers Care Electronic Field Service Engineer Name Role Phone Jeane Archuletashell OBRIEN Primary Care Provider + [phone] Melissa Jj MD Unavailable Christiano Quijano MD Unavailable + [phone] Belgica Hernandez PA-C Unavailable + [phone] Susy Cho MD Primary Care Provider [phone] Encounter Details Date Type Department Care Team (Late Contact Info) Description 03/22/2023 My[employer] Message Enc [facility] [address] [place] [address] [facility] echo Social History Tobacco Use Types Packs/Day Years Used Date Smoking Tobacco: Every Day Smokeless Tobacco: Never Alcohol Use Standard Drinks/Week Comments Not Currently 0 (1 standard drink = 0.6 oz pur e alcohol) Comments Unknown Sex and Gender Information Value Date Recorded Sex Assigned at Female 06/26/2024 9:45 AM AUDIOPROSTHOLOGIST Legal Sex Female 10:24 PM CDT Gender Identity Female 08/05/2021 9:03 AM CDT Sexual Orientation Not on file documented as of this encounter Plan of Treatment Upcoming Encounters Date Type Department Care Team (Late Contact Info) Description 01/22/2025 1:30 AM CDT Allied Health/Nurse Visit [facility] [address] [place] [phone] Christiano Quijano MD [address] [place] [address] 09/09/2025 1:00 PM CDT Appointment [facility] Non Invasive Cardiology - [place] [place] [address] [place] [address] Melissa Jj MD [address] [place], [place] [address] 09/16/2025 1:00 PM CDT Office Visit [facility] [address] [place] [address] Melissa Jj MD [address] [place], [place] [phone] documented as of this encounter Visit Diagnoses Not on filedocumented in this encounter Care Teams Electronic Field Service Engineer Relationship Specialty Start Date End Date Jeane Archuleta APNP [address] [place] [address] PCP - General 02/10/23 09/03/24 Susy Cho MD [address] [place] [address] PCP - General 09/04/24 Melissa Jj MD [address] [place] [address] Consulting Physician CARDIOVASCULAR DISEASE 02/22/23 Christiano Quijano MD [address] [place] [address] Consulting Physician CLINICAL CARDIAC ELECTROPHYSIOLOGY 04/03/24 Belgica Hernandez PA-C [address] [place] [address] [phone] Referring Physician PHYSICIAN SALARY AND WAGE ADMINISTRATOR 04/03/24 documented as of this encounter
[2024-12-21 15:07] LABS: Hematocrit 42.8 % (35.0-42.0); Hemoglobin 14.5 g/dL (11.7-13.8); Mean Corpuscular HGB Conc 33.9 g/dL (32-36); Mean Corpuscular Hemoglobin 30.9 pg (27.0-31.0); Mean Corpuscular Volume 91.3 fL (78.0-102.0); Platelet Count Result 217 K/mm3 (150-420); Red Blood Count 4.69 M/mm3 (4.20-5.40); White Blood Count 8.3 K/mm3 (4.8-10.8)
[2024-12-21 15:22] LABS: Alanine Aminotransferase 23 U/L (6-35); Albumin Level 4.3 g/dL (3.5-5.1); Alkaline Phosphatase 74 U/L (38-126); Anion Gap 7 mmol/L (4-12); Aspartate Amino Transferase 35 U/L (14-36); Bilirubin,Total 0.6 mg/dL (0.2-1.3); Blood Urea Nitrogen 11 mg/dL (7-17); Calcium 9.7 mg/dL (8.4-10.2); Carbon Dioxide 31 mmol/L (22-30); Chloride 104 mmol/L (98-107); Estimated Glomerular Filt Rate > 60; Glucose 178 mg/dL (65-110); Osmolality Calculated 297 mOsm/kg (285-295); Potassium 4.2 mmol/L (3.4-5.0); Sodium 142 mmol/L (137-145); Total Protein 6.7 g/dL (6.3-8.2)
== END 2024-12-21 14:22 | disposition home or self-care (01) ==
LOC: CHSLAB 14:24
PROVIDERS: Visit Provider Internal Medicine Rheumatology
DX: M79.7 Fibromyalgia (principal)
CPT/HCPCS: 36415; 80053; 85027